=== PATIENT | female | born 1955 | race Caucasian/White ===

== ENCOUNTER 2019-06-26 13:04 | Outpatient (CLI) | payer OTHER, SELFPAY ==
--- NOTE | 2019-06-26 13:13 | MM_ITS ---
WS: [id number] BILATERAL SCREENING DIGITAL MAMMOGRAM WITH CAD HISTORY: SCREENING COMPARISON: 05/26/2018 and 04/04/2017 Bilateral CC and MLO views submitted. Computer aided detection analyzed. Breast composition: There are scattered areas of fibroglandular density. No suspicious masses, microc alcifications or architectural distortion. Benign calcifications within each breast. MM/[place] [id number] IMPRESSION: BI-RADS: 2-Benign FOLLOW UP: 1 Year Follow-up
== END 2019-06-26 13:05 | disposition home or self-care (01) ==
LOC: RADSHAW 13:09
PROVIDERS: Family Provider Family Medicine; PCP Family Medicine
DX: Z12.31 Encounter for screening mammogram for malignant neoplasm of breast (principal)
CPT/HCPCS: 77067

== ENCOUNTER → 2019-07-30 12:35 | Outpatient (BNVA) | payer MEDICARE, SELFPAY | PROVIDERS: Family Provider Family Medicine; PCP Family Medicine; Visit Provider Nurse Practitioner | DX: J02.9 Acute pharyngitis, unspecified (principal); Z20.828 Contact with and (suspected) exposure to other viral communicable diseases | CPT/HCPCS: 87081; 87804; 87880 ==

== ENCOUNTER → 2019-08-17 11:22 | Outpatient (BNVA) | payer MEDICARE, SELFPAY | PROVIDERS: Family Provider Family Medicine; PCP Family Medicine; Visit Provider Family Medicine | DX: E78.2 Mixed hyperlipidemia (principal); Z76.89 Persons encountering health services in other specified circumstances | CPT/HCPCS: 80053; 80061; 83036; 84443; 85025 ==

== ENCOUNTER → 2019-10-03 09:09 | Outpatient (BNVA) | payer MEDICARE, SELFPAY | PROVIDERS: Family Provider Family Medicine; PCP Family Medicine; Referring Provider Family Medicine; Visit Provider Specialist | DX: R41.89 Other symptoms and signs involving cognitive functions and awareness (principal); R26.81 Unsteadiness on feet; Z87.891 Personal history of nicotine dependence | CPT/HCPCS: 82607; 82746; 83921; 85651; 96116; 99205 ==

== ENCOUNTER 2019-10-03 11:59 | Outpatient (CLI) | payer MEDICARE, SELFPAY ==
[2019-10-03 13:14] LABS: Vitamin B12 295 pg/mL (232-1245)
[2019-10-03 13:43] LABS: Erythrocyte Sedimentation Rate 22 mm/hr (0-15)
[2019-10-04 14:46] LABS: THYROID PEROXIDASE ANTIBODIES <1 IU/mL (<9)
[2019-10-04 15:10] LABS: ANA SCREEN, IFA NEGATIVE (NEGATIVE); CENTROMERE B ANTIBODY <1.0 NEG AI (<1.0 NEG); JO-1 ANTIBODY <1.0 NEG AI (<1.0 NEG); RNP ANTIBODY <1.0 NEG AI (<1.0 NEG); SCL-70 ANTIBODY <1.0 NEG AI (<1.0 NEG); SJOGREN'S ANTIBODY (SS-A) <1.0 NEG AI (<1.0 NEG); SM ANTIBODY <1.0 NEG AI (<1.0 NEG)
[2019-10-05 11:05] LABS: COMPLEMENT, TOTAL (CH50) >60 U/mL (31-60)
[2019-10-05 11:32] LABS: COMPLEMENT COMPONENT C3C 158 mg/dL (83-193); COMPLEMENT COMPONENT C4C 23 mg/dL (15-57)
[2019-10-07 01:27] LABS: DNA AB (DS) CRITHIDIA,IFA NEGATIVE (NEGATIVE)
[2019-10-08 15:51] LABS: Methylmalonic Acid 284 nmol/L (87-318)
== END 2019-10-03 12:00 | disposition home or self-care (01) ==
LOC: LAB 12:04
PROVIDERS: Family Provider Family Medicine; PCP Family Medicine; Visit Provider Specialist
DX: R26.81 Unsteadiness on feet (principal)
CPT/HCPCS: 82607; 82746; 83921; 85651

== ENCOUNTER → 2020-03-17 15:27 | Outpatient (BNVA) | payer MEDICARE, SELFPAY | PROVIDERS: Family Provider Family Medicine; PCP Family Medicine; Visit Provider Nurse Practitioner Family | DX: M79.642 Pain in left hand (principal) | CPT/HCPCS: 73130 ==

== ENCOUNTER → 2020-12-26 10:36 | Outpatient (BNVA) | payer MEDICARE, SELFPAY | PROVIDERS: Family Provider Family Medicine; PCP Family Medicine; Visit Provider Nurse Practitioner | DX: I10 Essential (primary) hypertension (principal); M54.9 Dorsalgia, unspecified; M25.579 Pain in unspecified ankle and joints of unspecified foot; M10.9 Gout, unspecified | CPT/HCPCS: 80053; 80061; 81000; 84443; 84550; 85025; 85651 ==

== ENCOUNTER → 2021-01-14 09:40 | Outpatient (BNVA) | payer MEDICARE, SELFPAY | PROVIDERS: Family Provider Family Medicine; PCP Family Medicine; Visit Provider Nurse Practitioner | DX: M25.579 Pain in unspecified ankle and joints of unspecified foot (principal); M54.9 Dorsalgia, unspecified; G89.29 Other chronic pain; M79.89 Other specified soft tissue disorders; M25.473 Effusion, unspecified ankle | CPT/HCPCS: 72072; 72100; 73610; 73630 ==

== ENCOUNTER 2021-09-27 | Outpatient (RCR) | payer MEDICARE, SELFPAY | END 2021-10-27 23:59 | disposition home or self-care (01) | LOC: TPT | PROVIDERS: Family Provider Family Medicine; PCP Nurse Practitioner | DX: M25.552 Pain in left hip (principal); M25.551 Pain in right hip; M54.50 Low back pain, unspecified; M19.90 Unspecified osteoarthritis, unspecified site | CPT/HCPCS: 97032; 97110; 97163 ==

== ENCOUNTER 2021-10-28 06:00 | Outpatient (RCR) | payer MEDICARE, SELFPAY | END 2021-11-26 23:59 | disposition home or self-care (01) | LOC: TPT 06:00 | PROVIDERS: PCP Nurse Practitioner | DX: M54.50 Low back pain, unspecified (principal); M25.552 Pain in left hip; M25.551 Pain in right hip | CPT/HCPCS: 97032; 97110 ==

== ENCOUNTER 2021-11-27 06:00 | Outpatient (RCR) | payer MEDICARE, SELFPAY | END 2021-12-27 23:59 | disposition home or self-care (01) | LOC: TPT 06:00 | PROVIDERS: PCP Nurse Practitioner | DX: M25.552 Pain in left hip (principal); M25.551 Pain in right hip; M54.50 Low back pain, unspecified; M19.90 Unspecified osteoarthritis, unspecified site | CPT/HCPCS: 97110 ==

== ENCOUNTER 2021-12-28 06:00 | Outpatient (RCR) | payer MEDICARE, SELFPAY | END 2021-12-29 16:19 | disposition home or self-care (01) | LOC: TPT 06:00 | PROVIDERS: PCP Nurse Practitioner | DX: M54.50 Low back pain, unspecified (principal); M25.552 Pain in left hip; M25.551 Pain in right hip | CPT/HCPCS: 97110 ==

== ENCOUNTER → 2022-05-17 13:42 | Outpatient (BNVA) | payer MEDICARE, SELFPAY | PROVIDERS: PCP Nurse Practitioner; Visit Provider Nurse Practitioner Family | DX: I10 Essential (primary) hypertension; R19.7 Diarrhea, unspecified; I48.91 Unspecified atrial fibrillation; R11.2 Nausea with vomiting, unspecified | CPT/HCPCS: 80053; 80061; 84443 ==

== ENCOUNTER 2023-05-11 20:06 | Observation (INO) | payer MEDICARE, SELFPAY ==
[2023-05-11] VITALS (17 sets, daily range): BP systolic 125–187; BP diastolic 74–114; PULSE 74–89; RESP 13–24; TEMP 36.7; O2SAT 91–98
--- NOTE | 2023-05-11 20:16 | ECG_ITS ---
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 Measurements Intervals [place] Rate: 89 P: 56 IA: 190 QRS: -49 QRSD: 89 T: 42 QT: 338 QTc: 413 Interpretive Statements SINUS RHYTHM LOW QRS VOLTAGE IN PRECORDIAL LEADS [QRS DEFLECTION < 1.0 mV IN CHEST LEADS] LEFT ANTERIOR FASCICULAR BLOCK [QRS AXIS <= -45, QR IN I, RS IN II] Compared to ECG 01/28/2019 03:48:08 No significant changes Electronically Signed On 05-12-2023 7:16:58 PROFESSIONAL HEALTHCARE REPRESENTATIVE by Micaela Herbert M.D. [email or web address]
--- NOTE | 2023-05-11 20:16 | XRR_ITS ---
PROCEDURE INFORMATION: Exam: XR Chest Exam date and time: 05/11/2023 8:50 PM Age: 67 years old Clinical indication: Shortness of breath; Additional info: SOB TECHNIQUE: Imaging protocol: Radiologic exam of the chest. Views: 1 view. COMPARISON: CT angio chest PE protcl [id number] 01/29/2019 11:31 AM FINDINGS: Lungs: No consolidation. Pleural spaces: No large pleural effusion. No pneumothorax. Heart/Mediastinum: Unremarkable cardiomediastinal silhouette. Bones/joints: No acute abnormality. XR/XR chest 1V portable [id number] IMPRESSION: No acute findings.
--- NOTE | 2023-05-11 20:21 | CTR_ITS ---
PROCEDURE INFORMATION: Exam: CT Head Without Contrast Exam date and time: 05/11/2023 8:27 PM Age: 67 years old Clinical indication: Stroke-like symptoms; Altered mental status/memory loss and drowsines/somnolence; Additional info: Weakness TECHNIQUE: Imaging protocol: Computed tomography of the head without contrast. Radiation optimization: All CT scans at this facility use at least one of these dose optimization techniques: automated exposure control; mA and/or kV adjustment per patient size (includes targeted exams where dose is matched to clinical indication); or iterative reconstruction. Other technique: STROKE PROTOCOL was implemented. REPORTING DATA: Count of CT and Cardiac NM exams in prior 12 months: This patient has received 0 known CTs and 0 known cardiac nuclear medicine studies in the 12 months prior to the current study. COMPARISON: MR head wo con* [id number] 01/30/2019 3:12 PM RADIATION DOSE METRICS: Total DLP (mGy-cm): 1168.2 FINDINGS: Brain: No acute intracranial hemorrhage. No territorial region of reynoso-white dedifferentiation. No extra-axial collection. No mass effect or midline shift. Mild generalized parenchymal volume loss. Prominent perivascular space in the left subinsular region. Cerebral ventricles: No acute hyrocephalus. Paranasal sinuses: Visualized sinuses are well-aearted. No fluid levels. Mastoid air cells: Visualized mastoid air cells are well aerated. Orbital cavities: No acute orbital abnormality. Bones/joints: No acute calvarial fracture. Soft tissues: No acute abnormality. CT/CT head wo con* [id number] IMPRESSION: No acute intracranial hemorrhage or evidence of acute territorial infarct. If there is persistent high clinical suspicion for acute ischemia, recommend MRI, as it is a more sensitive evaluation. ASSESSMENT: ASPECTS ([place] Stroke Program Early CT Score) is 10.
--- NOTE | 2023-05-11 20:22 | W.ED.SOB ---
HPI - SOB/Dyspnea General: Chief Complaint: Shortness of Breath/Dyspnea Stated Complaint: lethargy Time Seen by Provider: 05/11/23 20:12 Source: patient and EMS Mode of arrival: EMS Limitations: no limitations History of Present Illness: HPI Narrative: 67-year-old female was eating with family roughly 1 hour ago per EMS and family patient had became extremely lethargic and had a possible syncopal event states that she had cyanosis of her lips had placed a pulse ox on and stated it was in the 80s he states that she is having slurred speech and was not able to ambulate. Patient was placed on oxygen and route here given Raquel I did take her oxygen off she is 94% on room air currently. She has no slurred speech she states that her legs feel extremely weak she denies headache she denies chest pain denies any fevers. Associated symptoms: Reports syncope; Deny abdominal pain, chest pain, fever(s), nausea or vomiting Review of Systems Const: Denies: fever(s), chills, body aches or change in appetite Eyes: Denies: blurry vision or eye discomfort ENMT: Denies: throat pain or dental pain Card: Reports: syncope; Denies: chest pain Resp: Reports: dyspnea GI: Denies: abdominal pain, nausea, vomiting or diarrhea Musc: Denies: neck pain or back pain Skin/Breast: Denies: rash Neuro: Reports: weakness in extremities and confusion; Denies: headache(s) [facility] PFSH: Medical History Obesity, morbid, BMI 40.0-49.9 Chronic back pain Environmental and seasonal allergies Surgical History History of hysterectomy Family History Other Cancer Dementia Diabetes Hypertension Denies family history of Anesthesia complication Bleeding disorder Stroke Social History Second hand smoke exposure: No Alcohol intake: never Substance/Drug Use: never Adopted: No Caregiver/support person: No Lives independently: Yes Household members: spouse Housing: House Marital status: Number of children: 1 service: No Current occupational status: retired Current occupational exposures/hazards: No Do you think of yourself as: Straight/Heterosexual Current gender identity: Female Physical Exam Const: COMMON NORMALS: patient oriented x3 GENERAL APPEARANCE: ill appearing HENMT: COMMON NORMALS: normocephalic and atraumatic HEAD & SCALP: normocephalic and atraumatic Eye: COMMON NORMALS: Equal, round and reactive pupils present and EOMs intact bilaterally PUPIL: Yes Equal, round and reactive pupils present Neck/C-Spine: COMMON NORMALS: full ROM and supple Chest: COMMONS NORMALS: normal inspection of the chest and normal palpation of entire chest wall Resp: COMMON NORMALS: normal respiratory effort, No retractions, No use of accessory muscles and clear to auscultation bilaterally AUSCULTATION: clear to auscultation bilaterally Cardio: COMMON NORMALS: regular rate, regular rhythm and No murmurs present (Cardio) RATE: regular rate RHYTHM: regular rhythm GI: COMMON NORMALS: Normal to inspection, nondistended, normoactive bowel sounds present, Soft to palpation, non-tender and no masses PALPATION: Yes Soft to palpation Extremity: COMMON NORMALS: normal to inspection and full ROM Neuro: COMMON NORMALS: patient oriented x3 and no focal motor deficits SPEECH: speech normal OTHER: Patient having difficulty walking with bilateral leg weakness Psych: COMMON NORMALS: mental status grossly normal, Normal thought process present and cooperative THOUGHT PROCESS: Normal thought process present Skin: COMMON NORMALS: no rashes or lesions noted and no wounds GENERAL SKIN EXAM: no rashes or lesions noted Course Vital Signs: Vital signs: Vital Signs Temperature 98.1 F 05/11/23 20:07 Pulse Rate 79 05/11/23 21:30 Respiratory Rate 19 H 05/11/23 21:30 Blood Pressure 132/85 05/11/23 21:30 Pulse Oximetry 92 05/11/23 21:30 Oxygen Delivery Me thod Nasal Cannula 05/11/23 20:07 Oxygen Flow Rate 3 05/11/23 20:07 MDM - SOB/Dyspnea Medical Decision Making Patient presents here with possible syncopal event she has had lower leg weakness as well she states she feels much improved her weakness is improved here she has no signs of stroke head CT are normal. I spoke to the hospitalist will admit for observation. Medical Records I reviewed the patient's medical records. Lab Data I reviewed the patient's lab results. 05/11/23 20:45 05/11/23 20:45 Labs/Radiology: Radiology Impressions Chest X-Ray 05/11/23 20:16 IMPRESSION: No acute findings. Head CT 05/11/23 20:21 IMPRESSION: No acute intracranial hemorrhage or evidence of acute territorial infarct. If there is persistent high clinical suspicion for acute ischemia, recommend MRI, as it is a more sensitive evaluation. ASSESSMENT: ASPECTS ([place] Stroke Program Early CT Score) is 10. Head/Neck CTA 05/11/23 20:23 IMPRESSION: No large vessel occlusion or high-grade stenosis. IMPRESSION: 1. Patent cervical carotid and vertebral arteries without significant stenosis. 2. Enlarged main pulmonary artery, can be seen with pulmonary hypertension. REFERENCES: NASCET CRITERIA. The degree of stenosis in the cervical segment of the internal carotid artery is based on NASCET criteria. Normal is no stenosis. Mild is less than 50% stenosis. Moderate is 50-69% stenosis. Severe is 70% to 99% stenosis. Total occlusion is no detectable patent lumen. Laboratory Results WBC 8.80 10^3/uL (3.29-11.43) 05/11/23 20:45 RBC 4.62 10^6/uL (3.85-5.65) 05/11/23 20:45 Hgb 13.30 g/dL (11.27-16.99) 05/11/23 20:45 Hct 42.2 % (36-47) 05/11/23 20:45 MCV 91.3 fl (85-98) 05/11/23 20:45 MCH 28.8 pg (27-33) 05/11/23 20:45 MCHC 31.5 g/dL (30-55) 05/11/23 20:45 RDW 13.2 % (12.1-15.1) 05/11/23 20:45 Plt Count 208 10^3/cmm (157-399) 05/11/23 20:45 MPV 9.9 fL (7.4-10.4) 05/11/23 20:45 Neut % (Auto) 73.1 % 05/11/23 20:45 Lymph % (Auto) 15.2 % 05/11/23 20:45 [place] % (Auto) 9.1 % 05/11/23 20:45 Eos % (Auto) 1.4 % 05/11/23 20:45 Baso % (Auto) 0.9 % 05/11/23 20:45 Neut # (Auto) 6.43 10^3/uL (1.8-7.7) 05/11/23 20:45 Lymph # (Auto) 1.3 10^3/uL (0.8-4.8) 05/11/23 20:45 [place] # (Auto) 0.8 10^3/uL (0.2-0.9) 05/11/23 20:45 Eos # (Auto) 0.1 10^3/uL (0.0-0.8) 05/11/23 20:45 Baso # (Auto) 0.1 10^3/uL (0.0-0.1) 05/11/23 20:45 Nucleated RBC % (auto) 0 % 05/11/23 20:45 Nucleated RBCs # 0.0 /100WBC 05/11/23 20:45 PT 12.80 SECONDS (12.1-14.9) 05/11/23 20:45 INR 0.94 (0.8-1.2) 05/11/23 20:45 Specimen Type Arterial 05/11/23 20:45 Sample Site Brachial, right 05/11/23 20:45 ABG pH 7.35 (7.35-7.45) 05/11/23 20:45 ABG pCO2 56.1 mmHg (35-45) H 05/11/23 20:45 ABG pO2 61.7 mmHg (80.0-100.0) L 05/11/23 20:45 ABG PO2/FiO2 Ratio 0 05/11/23 20:45 ABG HCO3 30.6 mmol/L (22-26) H 05/11/23 20:45 ABG Base Excess 3.5 mmol/L (-2.0-2.0) H 05/11/23 20:45 Jairon Test N/a 05/11/23 20:45 Hematocrit 41.2 % (37-47) 05/11/23 20:45 O2 Delivery Device None 05/11/23 20:45 FiO2 21.0 % 05/11/23 20:45 Hardwood Floor Refinisher ID [email or web address] 12/13/23 20:45 Sodium 135 mmol/L (136-145) L 05/11/23 20:45 Potassium 4.3 mmol/L (3.5-5.1) 05/11/23 20:45 Chloride 98 mmol/L (98-107) 05/11/23 20:45 Carbon Dioxide 30 mmol/L (22-29) H 05/11/23 20:45 Anion Gap 11.3 (5-19) 05/11/23 20:45 BUN 12 mg/dL (8-23) 05/11/23 20:45 Creatinine 0.8 mg/dL (0.5-0.9) 05/11/23 20:45 GFR Calculation 71.3 mL/min (90-130) L 05/11/23 20:45 Glucose 116 mg/dL (65-115) H 05/11/23 20:45 POC Glucose 103 mg/dL (70-110) 05/11/23 20:43 Calculated Osmolality 281 mOsm/kg (285-295) L 05/11/23 20:45 Calcium 9.3 mg/dL (8.5-10.5) 05/11/23 20:45 Total Bilirubin 0.2 mg/dL (0.15-1.2) 05/11/23 20:45 AST 14 U/L (0-32) 05/11/23 20:45 ALT 13 U/L (0-33) 05/11/23 20:45 Alkaline Phosphatase 101 U/L (35-105) 05/11/23 20:45 Troponin T Baseline 16 ng/L (0-10) H 05/11/23 20:45 NT-Pro-B Natriuret Pep 68 pg/mL (0-125) 05/11/23 20:45 Total Protein 6.0 g/dL (6.6-8.7) L 05/11/23 20:45 Albumin 3.9 g/dL (3.5-5.2) 05/11/23 20:45 Globulin 2.1 g/dL (1.3-4.6) 05/11/23 20:45 Urine Color Yellow (Yellow) 05/11/23 21:12 Urine Appearance Clear (CLEAR) 05/11/23 21:12 Urine pH 5 (5-7) 05/11/23 21:12 Ur Specific [place] 1.020 (1.005-1.030) 05/11/23 21:12 Urine Protein Neg (Negative) 05/11/23 21:12 Urine Glucose (UA) Norm (Normal) 05/11/23 21:12 Urine Ketones Negative (Negative) 05/11/23 21:12 Urine Blood Neg (Negative) 05/11/23 21:12 Urine Nitrate Negative (Negative) 05/11/23 21:12 Urine Bilirubin Neg (Negative) 05/11/23 21:12 Urine Urobilinogen Neg mg/dL (Negative) 05/11/23 21:12 Ur Leukocyte Esterase Negative (Negative) 05/11/23 21:12 All radiology interpretation(s) finalized by discharge EKG Data EKG 1: I personally reviewed and interpreted this EKG as follows: EKG Interpretation Date: 05/11/23 EKG interpretation time: 20:12 Interpretation: nsr hr [address] elevation qrs 89 qtc 385 Discharge Plan Discharge Patient Disposition: Placed in Observation Clinical Impression: Weakness Syncope Qualifiers: Syncope type: unspecified Qualified Code(s): R55 - Syncope and collapse Condition: Stable Prescriptions: No Action venlafaxine 75 mg capsule,extended release 24hr 75 mg PO DAILY lisinopril 20 mg tablet 20 mg PO DAILY gabapentin 100 mg capsule 100 mg PO TID hydrochlorothiazide 12.5 mg tablet 12.5 mg PO DAILY cholecalciferol (vitamin D3) 50 mcg (2,000 unit) capsule 50 mcg PO DAILY Eliquis 5 mg tablet 5 mg PO BID Qty: 60 2RF sotalol 80 mg tablet 80 mg PO BID Qty: 60 2RF promethazine-DM 6.25-15 mg/5 mL syrup 5 ml PO Q6H PRN (Reason: cough) Qty: 160 0RF promethazine 25 mg tablet 25 mg PO QID PRN (Reason: nausea and vomiting) Qty: 60 0RF loperamide [Imodium A-D] 2 mg capsule 2 mg PO Q4H PRN (Reason: loose stool) Qty: 20 0RF promethazine-DM 6.25-15 mg/5 mL syrup 5 - 10 ml PO Q6H PRN (Reason: cough) Qty: 200 1RF azithromycin [Zithromax Z-Sandro] 250 mg tablet See Rx Instructions PO .COMPLEX Qty: 6 0RF Rx Instructions: For 250 mg dose pack: take 500 mg today (day 1), then 250 mg for 4 days (days 2-5) PO methylprednisolone [Medrol (Sandro)] 4 mg tablets,dose pack See Rx Instructions PO PER PKG DIR Qty: 21 0RF Rx Instructions: PO PER PKG DIR penicillin V potassium 500 mg tablet 500 mg PO TID 7 Days Qty: 21 0RF Referrals: Kobe Lenz MD [Primary Care Provider] - Coding Level of Care Code ED Visual Inspector for Chg Fwd NIH stroke score NIHSS Level Of Consciousness - 1a: 0 Level Of Consciousness Questions - 1b: Both Correct Level Of Consciousness Commands - 1c: Both Correct Best Gaze - 2: Normal Visual [place] - 3: No Visual Loss Facial Palsy - 4: Normal Motor Arm Right - 5: No Drift Motor Arm Left - 5: No Drift Motor Leg Right - 6: Effort Against [place] Motor Leg Left - 6: Effort Against [place] Limb Ataxia - 7: Absent Sensory - 8: Normal Best Language - 9: No Aphasia Dysarthia - 10: Normal Extinction And Inattention - 11: 0 Score Total Score: 4
--- NOTE | 2023-05-11 20:23 | CTR_ITS ---
PROCEDURE INFORMATION: Exam: CTA Head With Contrast, Arteriography Exam date and time: 05/11/2023 8:29 PM Age: 67 years old Clinical indication: Stroke-like symptoms; Altered mental status/memory loss and drowsines/somnolence; Additional info: CVA TECHNIQUE: Imaging protocol: Computed tomographic angiography of the head with contrast. Exam focused on the arteries. 3D rendering (Not supervised by radiologist): MIP and/or 3D reconstructed images were created by the technologist. Radiation optimization: All CT scans at this facility use at least one of these dose optimization techniques: automated exposure control; mA and/or kV adjustment per patient size (includes targeted exams where dose is matched to clinical indication); or iterative reconstruction. Contrast material: OMNI 350; Contrast volume: 100 ml; Contrast route: INTRAVENOUS (IV); REPORTING DATA: Count of CT and Cardiac NM exams in prior 12 months: This patient has received 0 known CTs and 0 known cardiac nuclear medicine studies in the 12 months prior to the current study. COMPARISON: CT head wo con* [id number] 05/11/2023 8:27 PM RADIATION DOSE METRICS: Total DLP (mGy-cm): 518.32 FINDINGS: ANTERIOR CIRCULATION: Right internal carotid artery: Patent without high-grade stenosis. Right middle cerebral artery: M1 and M2 segments are patent without high-grade stenosis. Right anterior cerebral artery: A1 and A2 segments are patent without high-grade stenosis. Left internal carotid artery: Patent without high-grade stenosis. Left middle cerebral artery: M1 and M2 segments are patent without high-grade stenosis. Left anterior cerebral artery: A1 and A2 segments are patent without high-grade stenosis. POSTERIOR CIRCULATION: Right vertebral artery: V4 segment is patent without high-grade stenosis. Left vertebral artery: V4 segment is patent without high-grade stenosis. Basilar artery: Patent without high-grade stenosis. Right posterior cerebral artery: P1 and P2 segments are patent without high-grade stenosis. Left posterior cerebral artery: P1 and P2 segments are patent without high-grade stenosis. Brain: No territorial region of reynoso-white dedifferentiation. No mass effect or midline shift. Cerebral ventricles: No acute hydrocephalus. Bones/joints: No acute fracture. Soft tissues: Unremarkable. Other findings: No aneurysm. No venous thrombosis. PROCEDURE INFORMATION: Exam: CTA Neck With Contrast Exam date and time: 05/11/2023 8:29 PM Age: 67 years old Clinical indication: Stroke-like symptoms; Altered mental status/memory loss and drowsines/somnolence; Additional info: CVA TECHNIQUE: Imaging protocol: Computed tomographic angiography of the neck with contrast. Exam focused on the cervical segments of the vasculature. 3D rendering (Not supervised by radiologist): MIP and/or 3D reconstructed images were created by the technologist. Radiation optimization: All CT scans at this facility use at least one of these dose optimization techniques: automated exposure control; mA and/or kV adjustment per patient size (includes targeted exams where dose is matched to clinical indication); or iterative reconstruction. Contrast material: OMNI 350; Contrast volume: 100 ml; Contrast route: INTRAVENOUS (IV); REPORTING DATA: Count of CT and Cardiac NM exams in prior 12 months: This patient has received 0 known CTs and 0 known cardiac nuclear medicine studies in the 12 months prior to the current study. COMPARISON: CT angio headneck* [id number] 01/27/2019 11:54 PM RADIATION DOSE METRICS: Total DLP (mGy-cm): 518.32 FINDINGS: Right common carotid artery: Patent. No high grade stenosis. Right internal carotid artery: Patent. Mild carotid bulb plaque with no stenosis by NASCET criteria. Right external carotid artery: Patent. No high grade stenosis at the origin. Left common carotid artery: Patent. No high grade stenosis. Left internal carotid artery: Patent. Mild carotid bulb plaque with no stenosis by NASCET criteria. Left external carotid artery: Patent. No high grade stenosis at the origin. Right vertebral artery: Patent. No high grade stenosis. Left vertebral artery: Patent. No high grade stenosis. Pulmonary arteries: Main pulmonary artery is enlarged measuring up to 3.6 cm. Soft tissues: Unremarkable. Bones/joints: No acute fracture. Lungs: Emphysema. CT/CT angio headneck* [id number] IMPRESSION: No large vessel occlusion or high-grade stenosis. IMPRESSION: 1. Patent cervical carotid and vertebral arteries without significant stenosis. 2. Enlarged main pulmonary artery, can be seen with pulmonary hypertension. REFERENCES: NASCET CRITERIA. The degree of stenosis in the cervical segment of the internal carotid artery is based on NASCET criteria. Normal is no stenosis. Mild is less than 50% stenosis. Moderate is 50-69% stenosis. Severe is 70% to 99% stenosis. Total occlusion is no detectable patent lumen.
[2023-05-11] MEDS: iohexol 350 mg/mL 500 mL Btl (per mL) IV (20:42)
[2023-05-11 20:46] LABS: Glucose Point of Care 103 mg/dL (70-110)
[2023-05-11 20:49] LABS: Basophils # 0.1 10^3/uL (0.0-0.1); Basophils % 0.9 %; Eosinophils # 0.1 10^3/uL (0.0-0.8); Eosinophils % 1.4 %; Hematocrit 42.2 % (36-47); Lymphocytes # 1.3 10^3/uL (0.8-4.8); Lymphocytes % 15.2 %; Mean Corpuscular HGB Conc 31.5 g/dL (30-55); Mean Corpuscular Hemoglobin 28.8 pg (27-33); Mean Corpuscular Volume 91.3 fl (85-98); Mean Platelet Volume 9.9 fL (7.4-10.4); Monocytes # 0.8 10^3/uL (0.2-0.9); Monocytes % 9.1 %; Neutrophils # 6.43 10^3/uL (1.8-7.7); Neutrophils % 73.1 %; Nucleated Red Blood Cells % 0 %; Platelet Count 208 10^3/cmm (157-399); Red Blood Count 4.62 10^6/uL (3.85-5.65); Red Cell Distribution Width 13.2 % (12.1-15.1)
--- NOTE | 2023-05-11 20:49 | PC.NURSE ---
Dr Farah instructed this nurse to hold off on hydralazine due to last BP.
[2023-05-11 20:51] LABS: ABG PCO2 56.1 mmHg (35-45); ABG PH Result 7.35 (7.35-7.45); Arterial Blood Gas Hematocrit 41.2 % (37-47); Base Excess ABG 3.5 mmol/L (-2.0-2.0); Blood Gas Sample Site Brachial, right; Blood Gas Sample Type Arterial; HCO3 ABG 30.6 mmol/L (22-26); PO2 ABG 61.7 mmHg (80.0-100.0); PO2 FiO2 Ratio Arterial Blood 0
[2023-05-11 21:02] LABS: INR 0.94 (0.8-1.2)
--- NOTE | 2023-05-11 21:03 | P.CONIM_ITS ---
Providers/Reason For Consult 2 Consulting Physician/Specialty*: Oskar Thornton MD neurology and epilepsy Reason for Consult*: Acute care code stroke emergency department room #10 Primary Care Provider: Kobe Lenz MD History of Present Illness History of Present Illness Brianna Deleon is a 67 year old female with a history of atrial fibrillation presented to the emergency room secondary to shortness of breath. According to the patient's daughter, the patient was eating chicken and rice and suddenly appeared as though she was having trouble swallowing. The patient was reported to stare and display cyanosis of her lips with decreased home pulse oximetry at 81% with irregular heart rate in the 70s to 80s. The patient was reported to lose consciousness and upon regaining consciousness patient was reported to be mumbling and was confused. EMS was contacted and the patient was brought to [facility] emergency department. In the emergency room, the patient's examination was nonfocal. NIH score equals 0. Noncontrast head CT was obtained and revealed no acute findings. CT angiogram of the head and neck were also performed the results of this study was negative for stenosis or aneurysm. In the emergency department room #10 the patient is alert alert and in no apparent distress. Her speech is clear and her examination is nonfocal. Patient did report history of chronic low back pain and complaining of pain in her lower back during lower extremity muscle testing. The patient's med list consist of Eliquis. The patient reported that she has not been taking the medication. According to the patient's daughter, the patient had a similar syncopal episode preceded by cyanosis of her lips in 2019 or 2020. Drug allergies: Levaquin which resulted in a rash Current home medications: Eliquis 5 mg p.o. twice daily (patient stated that she has not been taking this medication) Vitamin D3 50 mcg p.o. daily Azithromycin 250 mg tab Neurontin 100 mg p.o. 3 times daily Hydrochlorothiazide 12.5 mg p.o. daily Lisinopril 20 mg p.o. daily Loperamide 2 mg p.o. every 4 hours as needed Methylprednisolone 4 mg Dosepak Penicillin V Potassium Phenergan 25 mg p.o. 4 times daily, as needed Sotalol 80 mg p.o. twice daily Effexor extended release 75 mg p.o. daily Past medical history: Atrial fibrillation Pneumonia Chronic low back pain Obesity Hypertension Habits: None Review of Systems 2 General: Reports: 10 or more systems reviewed and unremarkable except in HPI and below Medications/Allergies Home Medications Medication Instructions Recorded Confirmed Last Taken Type apixaban 5 mg tablet (Eliquis) 5 mg PO BID #60 tabs 04/16/22 05/25/22 Unknown Rx cholecalciferol (vitamin D3) 50 50 mcg PO DAILY 04/16/22 05/25/22 Unknown History mcg (2,000 unit) capsule gabapentin 100 mg capsule 100 mg PO TID 04/16/22 05/25/22 Unknown History hydrochlorothiazide 12.5 mg tablet 12.5 mg PO DAILY 04/16/22 05/25/22 Unknown History lisinopril 20 mg tablet 20 mg PO DAILY 04/16/22 05/25/22 Unknown History promethazine-DM 6.25 mg-15 mg/5 mL 5 ml PO Q6H PRN cough #160 mL 04/16/22 05/25/22 Unknown Rx oral syrup sotalol 80 mg tablet 80 mg PO BID #60 tabs 04/16/22 05/25/22 Unknown Rx venlafaxine 75 mg capsule,extended 75 mg PO DAILY 04/16/22 05/25/22 Unknown History release 24 hr loperamide 2 mg capsule (Imodium 2 mg PO Q4H PRN loose stool #20 05/17/22 05/25/22 Unknown Rx A-D) caps promethazine 25 mg tablet 25 mg PO QID PRN nausea and 05/17/22 05/25/22 Unknown Rx vomiting #60 tabs azithromycin 250 mg tablet See Rx Instructions PO .COMPLEX #6 05/25/22 05/25/22 Unknown Rx (Zithromax Z-Sandro) tabs methylprednisolone 4 mg tablets in See Rx Instructions PO PER PKG DIR 05/25/22 05/25/22 Unknown Rx a dose pack (Medrol (Sandro)) #21 ea promethazine-DM 6.25 mg-15 mg/5 mL 5 - 10 ml PO Q6H PRN cough #200 mL 05/25/22 05/25/22 Unknown Rx oral syrup penicillin V potassium 500 mg 500 mg PO TID 7 days #21 tabs 05/28/22 05/28/22 Unknown Rx tablet Allergies Allergy/AdvReac Type Severity Reaction Status Date / Time levofloxacin [From Levaquin] Allergy ALGY-Rash Verified 05/11/23 20:17 PFSH Acute 2 PFSH: Medical History Obesity, morbid, BMI 40.0-49.9 Chronic back pain Environmental and seasonal allergies Surgical History History of hysterectomy Family History Other Cancer Dementia Diabetes Hypertension Denies family history of Anesthesia complication Bleeding disorder Stroke Social History Second hand smoke exposure: No Alcohol intake: never Substance/Drug Use: never Adopted: No Caregiver/support person: No Lives independently: Yes Household members: spouse Housing: House Marital status: Number of children: 1 service: No Current occupational status: retired Current occupational exposures/hazards: No Do you think of yourself as: Straight/Heterosexual Current gender identity: Female Vitals/I&O/Wt Last Vital Signs Temp 98.1 F 05/11/23 20:07 Pulse 89 05/11/23 20:07 Resp 22 H 05/11/23 20:07 BP 187/104 05/11/23 20:07 Pulse Ox 98 05/11/23 20:07 O2 Del Method Nasal Cannula 05/11/23 20:07 O2 Flow Rate 3 05/11/23 20:07 Weight last 48 hrs Weight 245 lb Physical Exam 2 Narrative: NIH score =0 The patient is alert and oriented to person place and situation. Patient was able to tell me her complete name, age and date of . Speech is clear. Head normocephalic. Neck supple. Cranial nerves II through XII grossly intact. Pupils 4 mm round reactive to light and accommodation. Extraocular movements intact. There were no nystagmus. Visual de appear to be full via confrontation. There was no obvious facial weakness. Motor testing was nonfocal. Patient had strong handgrips bilaterally and strong distal lower extremity power. Patient complained of pain in her back during leg raise in each leg bilaterally but she was able to lift her legs off of the bed. Patient reports proximal arm weakness but had strong handgrips and forearm strength bilaterally. Sensory examination was intact to touch. There was no extinction on double sensory stimulation. Deep tendon reflexes 2+ in upper extremities and 1+ at the patellas bilaterally. Plantar responses flexor bilaterally. There was no clonus. Throat clear. Lungs clear. Heart regular rhythm and rate extremities were negative for cyanosis. Data 05/11/23 20:45 05/11/23 20:45 A&P Assessment and plan (1) Syncope: Impression: 1. Syncopal episode preceded by patient appearing to be choking with respiratory difficulty and cyanosis of the lips and decreased O2 saturation 1a. Code stroke initiated. Neurological examination nonfocal. NIH score =[address] revealed no acute findings and CT angiogram of the head and neck negative for stenosis or aneurysm. Therefore the patient was not a candidate for thrombolytics and no thrombolytic was administered. 2. Atrial fibrillation 3. Hypertension 4. Respiratory distress Plan: 1. Recommend resuming Eliquis 2. Recommend cardiac evaluation for patient history of atrial fibrillation 3. Syncope/fall precautions 4. No further recommendations from neurological standpoint Consult Attestations 2 Medical Necessity Statement: Patient was evaluated by neurology for acute care/code stroke emergency department room #10 Coding Level of Care Code 88752 Diagnoses Syncope R55
[2023-05-11 21:12] LABS: Troponin(5th) Baseline 16 ng/L (0-10)
--- NOTE | 2023-05-11 21:12 | PC.NURSE ---
Dr Farah stated to this nurse that it was all right to obtain urine specimen via straight cath.
[2023-05-11 21:14] LABS: Add Urine Microscopic? NO; Charge for UA Resulting for Rev
[2023-05-11 21:19] LABS: Bilirubin Urine Neg (Negative); Blood Urine Neg (Negative); Glucose Urine UA Norm (Normal); Ketones Urine Negative (Negative); Leukocyte Esterase Urine Negative (Negative); Nitrate Urine Negative (Negative); Protein Urine Neg (Negative); Urine Appearance Clear (CLEAR); Urine Color Yellow (Yellow); Urobilinogen Urine Neg (Negative); pH Urine 5 (5-7)
[2023-05-11 21:19] LABS: Alanine Aminotransferase 13 U/L (0-33); Albumin Level 3.9 g/dL (3.5-5.2); Alkaline Phosphatase 101 U/L (35-105); Anion Gap 11.3 (5-19); Aspartate Amino Transferase 14 U/L (0-32); Blood Urea Nitrogen 12 mg/dL (8-23); Calcium 9.3 mg/dL (8.5-10.5); Carbon Dioxide 30 mmol/L (22-29); Chloride 98 mmol/L (98-107); Globulin 2.1 g/dL (1.3-4.6); Glomerular Filtration Rate 71.3 mL/min (90-130); Glucose 116 mg/dL (65-115); NT Pro B Type Natriuretic Pept 68 pg/mL (0-125); Osmolality Calculated 281 mOsm/kg (285-295); Potassium 4.3 mmol/L (3.5-5.1); Sodium 135 mmol/L (136-145); Total Bilirubin 0.2 mg/dL (0.15-1.2)
--- NOTE | 2023-05-11 21:39 | PM.HP ---
Providers/Chief Complaint Primary Care Provider: Kobe Lenz MD Chief Complaint: lethargy History of Present Illness Brianna Deleon is a 67 year old female who presents today after syncopal event while she was eating dinner with her daughter, daughter is at the bedside stating that same event happened in 2019 and then 2001, patient was evaluated by advisor advocate angel co founder who found A-fib and put on Eliquis and sotalol, 2021 patient had coronary angiogram which was unremarkable at [facility]. Today patient was having dinner when she turned blue, her lips were cyanotic, she was stuttering, EMS was called, she was saturating 81%, irregular heartbeat however without RVR he was in 70s, she was put on 3 L of oxygen, code stroke was called, she was evaluated by neurologist, NIH 0 on arrival, she was saturating well on room air, patient has not taken Eliquis or sotalol since June this year, patient stating that she is not able to afford any of her medications she is not taking any medication at this time. Her PCP is in [place] She has applied for special aid but still waiting for the approval I have requested D-dimer which is 0.7 which is unremarkable for her age She is normotensive, NIH 0 at the time of my evaluation as well, she is not in heart failure, BNP of 67, troponin without significant elevation EKG showing sinus rhythm CTA head and neck unremarkable, concern for pulmonary hypertension Will request echo Review of Systems Const: Denies: fever(s) Eyes: Denies: change in vision ENMT: Denies: throat pain Card: Denies: chest pain Resp: Denies: dyspnea : Denies: flank pain Musc: Denies: neck pain Skin/Breast: Denies: rash Neuro: Reports: dizziness, vertigo and Slurred speech present Psych: Denies: anxiety Medications/Allergies Home Medications Medication Instructions Recorded Confirmed Last Taken Type apixaban 5 mg tablet (Eliquis) 5 mg PO BID #60 tabs 04/16/22 05/25/22 Unknown Rx cholecalciferol (vitamin D3) 50 50 mcg PO DAILY 04/16/22 05/25/22 Unknown History mcg (2,000 unit) capsule gabapentin 100 mg capsule 100 mg PO TID 04/16/22 05/25/22 Unknown History hydrochlorothiazide 12.5 mg tablet 12.5 mg PO DAILY 04/16/22 05/25/22 Unknown History lisinopril 20 mg tablet 20 mg PO DAILY 04/16/22 05/25/22 Unknown History promethazine-DM 6.25 mg-15 mg/5 mL 5 ml PO Q6H PRN cough #160 mL 04/16/22 05/25/22 Unknown Rx oral syrup sotalol 80 mg tablet 80 mg PO BID #60 tabs 04/16/22 05/25/22 Unknown Rx venlafaxine 75 mg capsule,extended 75 mg PO DAILY 04/16/22 05/25/22 Unknown History release 24 hr loperamide 2 mg capsule (Imodium 2 mg PO Q4H PRN loose stool #20 05/17/22 05/25/22 Unknown Rx A-D) caps promethazine 25 mg tablet 25 mg PO QID PRN nausea and 05/17/22 05/25/22 Unknown Rx vomiting #60 tabs azithromycin 250 mg tablet See Rx Instructions PO .COMPLEX #6 05/25/22 05/25/22 Unknown Rx (Zithromax Z-Sandro) tabs methylprednisolone 4 mg tablets in See Rx Instructions PO PER PKG DIR 05/25/22 05/25/22 Unknown Rx a dose pack (Medrol (Sandro)) #21 ea promethazine-DM 6.25 mg-15 mg/5 mL 5 - 10 ml PO Q6H PRN cough #200 mL 05/25/22 05/25/22 Unknown Rx oral syrup penicillin V potassium 500 mg 500 mg PO TID 7 days #21 tabs 05/28/22 05/28/22 Unknown Rx tablet Allergies Allergy/AdvReac Type Severity Reaction Status Date / Time levofloxacin [From Levaquin] Allergy ALGY-Rash Verified 05/11/23 20:17 PFSH Acute PFSH: Medical History Pneumonia Cough Acute bronchitis Allergic eczema Obesity, morbid, BMI 40.0-49.9 Chronic back pain Environmental and seasonal allergies Surgical History History of hysterectomy Family History Other Cancer Dementia Diabetes Hypertension Denies family history of Anesthesia complication Bleeding disorder Stroke Social History Second hand smoke exposure: No Alcohol intake: never Substance/Drug Use: never Adopted: No Caregiver/support person: No Lives independently: Yes Household members: spouse Housing: House Marital status: Number of children: 1 service: No Current occupational status: retired Current occupational exposures/hazards: No Do you think of yourself as: Straight/Heterosexual Current gender identity: Female Vitals/I&O/Wt Last Vital Signs Temp 98.1 F 05/11/23 20:07 Pulse 79 05/11/23 21:30 Resp 19 H 05/11/23 21:30 BP 132/85 05/11/23 21:30 Pulse Ox 92 05/11/23 21:30 O2 Del Method Nasal Cannula 05/11/23 20:07 O2 Flow Rate 3 05/11/23 20:07 Weight last 48 hrs Weight 111.13 kg Physical Exam Narrative: NIH 0 No active focal exam S1, S2 sinus rhythm hemodynamic stable GCS 15, obese Abdomen soft lower Extremity no swelling Currently saturating well on room air No acute distress at all No slurring of speech, Good strength of upper and lower extremities Data 05/11/23 20:45 05/11/23 20:45 A&P Assessment and plan (1) Essential (primary) hypertension: (2) Atrial fibrillation: (3) Chronic back pain: (4) Syncope: Qualifiers: Syncope type: unspecified Qualified Code(s): R55 - Syncope and collapse (5) Weakness: (6) TIA (transient ischemic attack): Plan TIA CTA head and neck unremarkable NIH 0 Patient has not taken Eliquis for total of this year She has been evaluated by advisor advocate angel co founder who found A-fib and put her on sotalol and Eliquis She would require financial reporting consultant through case management in the morning Her PCP is in [place] I will continue high-dose statins, Eliquis and Plavix Will request echo, Patient hemodynamically stable, She carries diagnosis essential hypertension Patient has not taken antihypertensive regimen in a year, currently normotensive She takes lisinopril and hydrochlorothiazide I would only continue lisinopril at lower dose 10 mg daily History of A-fib, continue Eliquis Hold off on sotalol I will add low-dose metoprolol Full code Cardiac diet PT evaluation needed No need of OT or speech therapy DVT prophylaxis Eliquis will be sufficient at this time D-dimer: Unremarkable for age No signs of UTI Acute hypoxia: Resolved currently doing well on room air she was put on 3 L by the EMS Chest x-ray unremarkable Will request records from [facility] regarding recent angiogram was unremarkable as per the daughter Attestations Medical Necessity Statement*: Anticipate discharge within 48 hours Diagnoses Essential (primary) hypertension I10 Atrial fibrillation I48.91 Chronic back pain M54.9; G89.29 Syncope R55 Syncope type: unspecified Weakness R53.1 TIA (transient ischemic attack) G45.9
--- NOTE | 2023-05-11 21:41 | USCV_ITS ---
Brianna Deleon Age: 67 Gender: F : 1955 Exam Date: 05/11/2023 22:58 Ordering Phys: Matty Gillette MD Technologist: NITIN [place]am [place] [facility] [place]ication: TIA - slurred speech and ataxia episode. No history of cardiac intervention per patient. BP: 132 / 85 HR: 85 Rhythm: Sinus Technical Quality: Adequate MEASUREMENTS (Male / Female) Normal Values 2D ECHO LV Diastolic Diameter PLAX 4.3 cm 4.2 - 5.9 / 3.9 - 5.3 cm LV Systolic Diameter PLAX 2.8 cm IVS Diastolic Thickness 1.9 cm 0.6 - 1.0 / 0.6 - 0.9 cm IVS Systolic Thickness 2.1 cm LVPW Diastolic Thickness 1.5 cm 0.6 - 1.0 / 0.6 - 0.9 cm LVPW Systolic Thickness 1.8 cm LVOT Diameter 2.0 cm LV Ejection Fraction 2D Teich 64.9 % LV Ejection Fraction MOD 2C 56.9 % LV Ejection Fraction 2C AL 59.0 % LA Diameter 3.7 cm LA Width 3.0 cm LA Height 4.5 cm RA Width 3.6 cm RA Height 4.3 cm Aorta at Sinotubular Diameter 2.6 cm IVC Diameter 1.7 cm M-MODE Aortic Annulus Diameter 3.5 cm LA Ao Ratio MM 1.1 MV E Point Septal Separation 0.2 cm DOPPLER AV Peak Velocity 152.0 cm/s LVOT Peak Velocity 100.0 cm/s AV Area Cont Eq vti 2.4 cm squared AV Area Cont Eq pk 2.0 cm squared MV Area PHT 3.9 cm squared Mitral E to A Ratio 0.6 MV E' Velocity 35.0 cm/s Mitral E to MV E' Ratio 6.8 Mitral E to LV E' Lateral Ratio 5.8 Mitral E to LV E' Septal Ratio 8.5 TR Peak Velocity 239.0 cm/s TR Peak Gradient 22.8 mmHg TV Peak E Velocity 40.0 cm/s Right Atrial Pressure 5.0 mmHg Pulmonary Artery Systolic Pressu 27.8 mmHg PV Peak Velocity 106.0 cm/s RV Acceleration Time 0.0 s RV Ejection Time 0.3 s RV AcT/ET 0.1 FINDINGS Left Ventricle Normal left ventricular size, systolic function and mildly increased wall thickness, with no diagnostic regional wall motion abnormalities. Left ventricular ejection fraction is estimated at 60 %. Grade I diastolic dysfunction (abnormal relaxation filling pattern), normal to mildly elevated filling pressures. Right Ventricle Normal right ventricular size and systolic function. Right Atrium Normal right atrial size. Left Atrium Normal left atrial size. Mitral Valve Mildly thickened mitral valve. Aortic Valve Structurally normal trileaflet aortic valve. No aortic valve stenosis. No aortic valve regurgitation. Tricuspid Valve Structurally normal tricuspid valve. Trace tricuspid valve regurgitation. Pulmonic Valve Structurally normal pulmonic valve. No pulmonary valve stenosis. Trace pulmonary valve regurgitation. Pericardium No pericardial effusion. Aorta Normal size aortic root and proximal ascending aorta. IVC Normal IVC dimension with >50% respiratory change of the inferior vena cava. CONCLUSIONS 1. Normal left ventricular size, systolic function and mildly increased wall thickness, with no diagnostic regional wall motion abnormalities. Left ventricular ejection fraction is estimated at 60 %. Grade I diastolic dysfunction (abnormal relaxation filling pattern), normal to mildly elevated filling pressures. 2. No significant valvular abnormalities. 3. No significant change when compared to study dated 02/20/2019. Micaela Herbert MD (Electronically Signed) Final Date: 12 May 2023 12:47 S
[2023-05-11 21:54] LABS: D Dimer 0.74 ug/mLFEU (0-0.59)
--- NOTE | 2023-05-11 22:07 | PC.NURSE ---
Report called to Krystal Markham LPN on MS. All questions and concerns addressed at time of report.
[2023-05-11 22:13] LABS: Estmated Average Glucose 117; Hemoglobin A1C 5.7 % (4.0-6.0)
[2023-05-11 23:53] LABS: Thyroid Stimulating Hormone 1.16 uIU/mL (0.27-4.20); Vitamin B12 589 pg/mL (232-1245)
[2023-05-12] VITALS (7 sets, daily range): BP systolic 113–132; BP diastolic 72–85; PULSE 72–108; RESP 14–18; TEMP 36.8–37; O2SAT 90–95
[2023-05-12 00:10] LABS: Troponin 5 2HR 14.46 ng/L (0-10)
[2023-05-12 00:11] LABS: Troponin 5 2HR Delta -1.54 ABS# (0-10)
[2023-05-12 02:51] LABS: Basophils # 0.1 10^3/uL (0.0-0.1); Basophils % 0.9 %; Eosinophils # 0.1 10^3/uL (0.0-0.8); Eosinophils % 1.8 %; Hematocrit 41.2 % (36-47); Lymphocytes # 1.9 10^3/uL (0.8-4.8); Lymphocytes % 24.5 %; Mean Corpuscular HGB Conc 31.3 g/dL (30-55); Mean Corpuscular Hemoglobin 28.5 pg (27-33); Mean Corpuscular Volume 91.2 fl (85-98); Monocytes # 0.8 10^3/uL (0.2-0.9); Monocytes % 9.5 %; Neutrophils # 4.97 10^3/uL (1.8-7.7); Neutrophils % 62.9 %; Nucleated Red Blood Cells % 0 %; Platelet Count 202 10^3/cmm (157-399); Red Blood Count 4.52 10^6/uL (3.85-5.65); Red Cell Distribution Width 13.2 % (12.1-15.1); White Blood Count 7.89 10^3/uL (3.29-11.43)
[2023-05-12 03:11] LABS: Troponin 5 6HR 12.88 ng/L (0-10); Troponin 5 6HR Delta -3.12 ng/L (0-12)
[2023-05-12 03:14] LABS: Blood Urea Nitrogen 11 mg/dL (8-23); Calcium 9.4 mg/dL (8.5-10.5); Carbon Dioxide 27 mmol/L (22-29); Chloride 102 mmol/L (98-107); Glomerular Filtration Rate 83.2 mL/min (90-130); Glucose 109 mg/dL (65-115); Magnesium 1.9 mg/dL (1.7-2.3); Osmolality Calculated 286 mOsm/kg (285-295); Phosphorus 3.3 mg/dL (2.5-4.5); Sodium 138 mmol/L (136-145)
[2023-05-12 03:16] LABS: Anion Gap 13.2 (5-19); Potassium 4.2 mmol/L (3.5-5.1)
[2023-05-12] MEDS: clopidogrel 75 mg Tablet PO (08:29)
[2023-05-12] MEDS: metoprolol tartrate 25 mg Tablet 12.5 MG PO (08:29)
[2023-05-12] MEDS: apixaban 5 mg Tablet PO (08:30)
[2023-05-12] MEDS: lisinopril 20 mg Tablet 10 MG PO (08:30)
[2023-05-12] MEDS: atorvastatin 40 mg Tablet 80 MG PO (08:30)
[2023-05-12] MEDS: acetaminophen 500 mg Tablet PO (08:36)
--- NOTE | 2023-05-12 10:11 | MR_ITS ---
WS: [id number] MRI HEAD WITHOUT CONTRAST TECHNIQUE: Sagittal T1, T2 axial, T2 axial FLAIR, axial and coronal T1 images, axial susceptibility w eighted imaging, axial diffusion weighted images, and coronal T2 images were obtained. CLINICAL INFORMATION: Possible post circulation stroke COMPARISON: CT 05/11/2023 and MRI 2019 FINDINGS: No evidence of restricted diffusion to suggest acute ischemia. Ventricular system and basal cisterns are patent. Mild small vessel changes. Mild parenchymal volume loss. This is only slightly progressed since 2019. Normal posterior fossa. Normal vascular flow voids at the skull base. No extra-axial fluid collection s. No evidence of mass or mass effect. Mild mucosal thickening in the paranasal sinuses. Mild mucosal thickening RIGHT mastoid air cells. Normal posterior nasopharynx. No hemosiderin on the susceptibly weighted images. Normal optic chiasm and pituitary infundibulum. Te mporal lobes and hippocampal formations are normal in appearance. IMPRESSION: 1. No evidence of restricted diffusion to suggest acute ischemia. 2. Mild small vessel changes with mild parenchymal volume loss. 3. No hemosiderin on susceptibly weighted images. 4. No other suspicious findings.
--- NOTE | 2023-05-12 10:31 | PC.CHAP ---
Pastoral Care Encounter/Spiritual Assessment Type of Contact [] Declined senior systems developer visit [] Patient/Family/Request visit [] Outpatient visit [x] Follow-up visit [] Physician referral [] Code/Alert [] Routine visit [] Staff referral [] Actively dying [] Patient sleeping [] Family support [] [] Out of room [] Palliative care [] [] Receiving care in room [] Pre-surgical visit [] Trauma [] Long length of stay [] ICU visit [] Other: Relational/Emotional Strength [] Patient feels connected with others/family/visitors/staff [] Distress [] Loneliness/isolation [] Abandonment Spirituality of Patient [] Person of Gauri [] Attends Gnosticism of their Gauri [] Believes in Prayer [] Reads Bible or Mormonism materials [] There are Spiritual issues to be addressed Curriculum Consultant Interventions [] Prayer [] Active listening [] Non-anxious presence [] Spiritual/emotional support [] Crisis/trauma care [] Spiritual counseling [] Bereavement support [] Provided bereavement packet [] Provided Bible/devotional materials [] Provided toy/stuffed animal, coloring book to patient or family member [] Provided Communion [] Anointing/[place] [] Salvation [] Completed spiritual assessment [] Other: Impact on Illness or Injury [] Angry [] Fearful [] Anxious [] Often cries [] Exhaustion [] Unable to work [] Unable to attend religious [] Unable to walk/stand [] Unable to read [] Unable to drive [] Unable to eat/drink [] Unable to sleep [] Unable to be with family [] Patient intubated [] Other: Summary Follow-up visit Time spent with patient 5 mins
--- NOTE | 2023-05-12 14:05 | PM.DCS ---
Discharge Providers Date of Admission: 05/11/23 21:49 Date of Discharge: May 12, 2023 Attending Provider at Admission: Matty Gillette MD Attending Provider at Discharge: Hans Roberts MD Consults: Neurology: Dr. Thornton Primary Care Provider: Kobe Lenz MD Diagnoses at Discharge Discharge Diagnosis (1) Essential (primary) hypertension: Status: Chronic (2) Atrial fibrillation: Status: Acute (3) Chronic back pain: Status: Chronic (4) Syncope: Status: Acute Qualifiers: Syncope type: unspecified Qualified Code(s): R55 - Syncope and collapse (5) Weakness: Status: Acute (6) TIA (transient ischemic attack): Status: Acute Reason for Visit Reason for Visit: lethargy Brief History: History as per HPI: Brianna Deleon is a 67 year old female who presents today after syncopal event while she was eating dinner with her daughter, daughter is at the bedside stating that same event happened in 2018 and then 2001, patient was evaluated by sales representative printing supplies who found A-fib and put on Eliquis and sotalol, 2021 patient had coronary angiogram which was unremarkable at [facility]. Today patient was having dinner when she turned blue, her lips were cyanotic, she was stuttering, EMS was called, she was saturating 81%, irregular heartbeat however without RVR he was in 70s, she was put on 3 L of oxygen, code stroke was called, she was evaluated by neurologist, NIH 0 on arrival, she was saturating well on room air, patient has not taken Eliquis or sotalol since June this year, patient stating that she is not able to afford any of her medications she is not taking any medication at this time. Her PCP is in [place] She has applied for special aid but still waiting for the approval. Hospital Course Hospital Course Patient was admitted to the hospital for further evaluation and management of syncope. She did not have any further episodes of syncope during hospitalization. She was seen by PT and OT and was cleared for discharge. MRI head was done which ruled out stroke. Patient stated she is supposed to be on medication for A-fib including sotalol and Eliquis which she has not been taking because of financial constraints. Case management was consulted and patient was given resources with 340 b. Orthostatics are negative. Echocardiogram was done which showed a normal EF 60%, grade 1 diastolic dysfunction. She has been discharged hemodynamically stable condition with advised to follow-up with a primary care provider within next 1 week. Medications have been provided to Meds to bed. Physical Exam Narrative: NIH 0 No active focal exam S1, S2 sinus rhythm hemodynamic stable GCS 15, obese Abdomen soft lower Extremity no swelling Currently saturating well on room air No acute distress at all No slurring of speech, Good strength of upper and lower extremities Discharge Data Studies Completed and Pending Completed Studies During Hospitalization Category Date Time Status CT head wo con* [id number] Stat Cat Scan 05/11/23 20:21 Completed CTA head neck [CT angio headneck* [id number]] Stat Cat Scan 05/11/23 20:23 Completed XR chest 1V portable [id number] Stat Exams 05/11/23 20:16 Completed MR head wo con* [id number] Routine MRI 05/12/23 10:11 Completed CV. echo complete* [id number] Routine Ultrasound 05/11/23 21:41 Completed Radiology Impressions Chest X-Ray 05/11/23 20:16 IMPRESSION: No acute findings. Head CT 05/11/23 20:21 IMPRESSION: No acute intracranial hemorrhage or evidence of acute territorial infarct. If there is persistent high clinical suspicion for acute ischemia, recommend MRI, as it is a more sensitive evaluation. ASSESSMENT: ASPECTS ([place] Stroke Program Early CT Score) is 10. Head/Neck CTA 05/11/23 20:23 IMPRESSION: No large vessel occlusion or high-grade stenosis. IMPRESSION: 1. Patent cervical carotid and vertebral arteries without significant stenosis. 2. Enlarged main pulmonary artery, can be seen with pulmonary hypertension. REFERENCES: NASCET CRITERIA. The degree of stenosis in the cervical segment of the internal carotid artery is based on NASCET criteria. Normal is no stenosis. Mild is less than 50% stenosis. Moderate is 50-69% stenosis. Severe is 70% to 99% stenosis. Total occlusion is no detectable patent lumen. Echocardiogram: CONCLUSIONS 1. Normal left ventricular size, systolic function and mildly increased wall thickness, with no diagnostic regional wall motion abnormalities. Left ventricular ejection fraction is estimated at 60 %. Grade I diastolic dysfunction (abnormal relaxation filling pattern), normal to mildly elevated filling pressures. 2. No significant valvular abnormalities. 3. No significant change when compared to study dated 02/20/2019. Micaela Herbert MD (Electronically Signed) Final Date: 12 May 2023 MRI head: IMPRESSION: 1. No evidence of restricted diffusion to suggest acute ischemia. 2. Mild small vessel changes with mild parenchymal volume loss. 3. No hemosiderin on susceptibly weighted images. 4. No other suspicious findings. Dictated By: Héctor Vazquez MD Laboratory Results WBC 7.89 10^3/uL (3.29-11.43) 05/12/23 02:46 RBC 4.52 10^6/uL (3.85-5.65) 05/12/23 02:46 Hgb 12.90 g/dL (11.27-16.99) 05/12/23 02:46 Hct 41.2 % (36-47) 05/12/23 02:46 MCV 91.2 fl (85-98) 05/12/23 02:46 MCH 28.5 pg (27-33) 05/12/23 02:46 MCHC 31.3 g/dL (30-55) 05/12/23 02:46 RDW 13.2 % (12.1-15.1) 05/12/23 02:46 Plt Count 202 10^3/cmm (157-399) 05/12/23 02:46 MPV 10.0 fL (7.4-10.4) 05/12/23 02:46 Neut % (Auto) 62.9 % 05/12/23 02:46 Lymph % (Auto) 24.5 % 05/12/23 02:46 Stephens % (Auto) 9.5 % 05/12/23 02:46 Eos % (Auto) 1.8 % 05/12/23 02:46 Baso % (Auto) 0.9 % 05/12/23 02:46 Neut # (Auto) 4.97 10^3/uL (1.8-7.7) 05/12/23 02:46 Lymph # (Auto) 1.9 10^3/uL (0.8-4.8) 05/12/23 02:46 Stephens # (Auto) 0.8 10^3/uL (0.2-0.9) 05/12/23 02:46 Eos # (Auto) 0.1 10^3/uL (0.0-0.8) 05/12/23 02:46 Baso # (Auto) 0.1 10^3/uL (0.0-0.1) 05/12/23 02:46 Nucleated RBC % (auto) 0 % 05/12/23 02:46 Nucleated RBCs # 0.0 /100WBC 05/12/23 02:46 PT 12.80 SECONDS (12.1-14.9) 05/11/23 20:45 INR 0.94 (0.8-1.2) 05/11/23 20:45 D-Dimer 0.74 ug/mLFEU (0-0.59) H 05/11/23 20:45 Specimen Type Arterial 05/11/23 20:45 Sample Site Brachial, right 05/11/23 20:45 ABG pH 7.35 (7.35-7.45) 05/11/23 20:45 ABG pCO2 56.1 mmHg (35-45) H 05/11/23 20:45 ABG pO2 61.7 mmHg (80.0-100.0) L 05/11/23 20:45 ABG PO2/FiO2 Ratio 0 05/11/23 20:45 ABG HCO3 30.6 mmol/L (22-26) H 05/11/23 20:45 ABG Base Excess 3.5 mmol/L (-2.0-2.0) H 05/11/23 20:45 Jairon Test N/a 05/11/23 20:45 Hematocrit 41.2 % (37-47) 05/11/23 20:45 O2 Delivery Device None 05/11/23 20:45 FiO2 21.0 % 05/11/23 20:45 Chiropractic Teacher ID [email or web address] 05/11/23 20:45 Sodium 138 mmol/L (136-145) 05/12/23 02:46 Potassium 4.2 mmol/L (3.5-5.1) 05/12/23 02:46 Chloride 102 mmol/L (98-107) 05/12/23 02:46 Carbon Dioxide 27 mmol/L (22-29) 05/12/23 02:46 Anion Gap 13.2 (5-19) 05/12/23 02:46 BUN 11 mg/dL (8-23) 05/12/23 02:46 Creatinine 0.7 mg/dL (0.5-0.9) 05/12/23 02:46 GFR Calculation 83.2 mL/min (90-130) L 05/12/23 02:46 Glucose 109 mg/dL (65-115) 05/12/23 02:46 POC Glucose 103 mg/dL (70-110) 05/11/23 20:43 Estimat Average Glucose 117 05/11/23 20:45 Hemoglobin A1c 5.7 % (4.0-6.0) 05/11/23 20:45 Calculated Osmolality 286 mOsm/kg (285-295) 05/12/23 02:46 Calcium 9.4 mg/dL (8.5-10.5) 05/12/23 02:46 Phosphorus 3.3 mg/dL (2.5-4.5) 05/12/23 02:46 Magnesium 1.9 mg/dL (1.7-2.3) 05/12/23 02:46 Total Bilirubin 0.2 mg/dL (0.15-1.2) 05/11/23 20:45 AST 14 U/L (0-32) 05/11/23 20:45 ALT 13 U/L (0-33) 05/11/23 20:45 Alkaline Phosphatase 101 U/L (35-105) 05/11/23 20:45 Troponin T Baseline 16 ng/L (0-10) H 05/11/23 20:45 Troponin T 120 Minute 14.46 ng/L (0-10) H 05/11/23 23:39 Delta Troponin T -1.54 ABS# (0-10) L 05/11/23 23:39 Troponin T Hi Sens 6Hr 12.88 ng/L (0-10) H 05/12/23 02:46 Troponin T Hi Sens 6Hr Delta -3.12 ng/L (0-12) L 05/12/23 02:46 NT-Pro-B Natriuret Pep 68 pg/mL (0-125) 05/11/23 20:45 Total Protein 6.0 g/dL (6.6-8.7) L 05/11/23 20:45 Albumin 3.9 g/dL (3.5-5.2) 05/11/23 20:45 Globulin 2.1 g/dL (1.3-4.6) 05/11/23 20:45 Vitamin B12 589 pg/mL (232-1245) 05/11/23 20:45 TSH 1.16 uIU/mL (0.27-4.20) 05/11/23 20:45 Urine Color Yellow (Yellow) 05/11/23 21:12 Urine Appearance Clear (CLEAR) 05/11/23 21:12 Urine pH 5 (5-7) 05/11/23 21:12 Ur Specific [place] 1.020 (1.005-1.030) 05/11/23 21:12 Urine Protein Neg (Negative) 05/11/23 21:12 Urine Glucose (UA) Norm (Normal) 05/11/23 21:12 Urine Ketones Negative (Negative) 05/11/23 21:12 Urine Blood Neg (Negative) 05/11/23 21:12 Urine Nitrate Negative (Negative) 05/11/23 21:12 Urine Bilirubin Neg (Negative) 05/11/23 21:12 Urine Urobilinogen Neg mg/dL (Negative) 05/11/23 21:12 Ur Leukocyte Esterase Negative (Negative) 05/11/23 21:12 Vitals Last Vital Signs Temp 98.6 F 05/12/23 09:00 Pulse 72 05/12/23 09:00 Resp 14 05/12/23 09:00 BP 129/72 05/12/23 09:00 Pulse Ox 94 05/12/23 09:00 O2 Del Method Nasal Cannula 05/12/23 09:00 O2 Flow Rate 2 05/12/23 08:00 Discharge Plan Discharge Patient Disposition: Home Condition: Stable Prescriptions: New atorvastatin 40 mg Tablet 40 mg PO DAILY Qty: 60 0RF lisinopril 20 mg Tablet 10 mg PO DAILY 30 Days Qty: 30 0RF Eliquis 5 mg Tablet 5 mg PO BID Qty: 60 0RF metoprolol tartrate 25 mg tablet 25 mg PO BID Qty: 60 0RF aspirin [Adult Aspirin Regimen] 81 mg tablet,delayed release (DR/EC) 81 mg PO DAILY Qty: 30 0RF Continued Vitamin D3 25 mcg (1,000 unit) Tablet 25 mcg PO DAILY Discontinued aspirin 325 mg Capsule 325 mg PO Q6H PRN (Reason: Pain) Discharge Orders: Discharge Order (Routine); Ordered 05/12/23 Ordered By: Hans Roberts Referrals: Kobe Lenz MD [Primary Care Provider] - Discharge Diet: Cardiac Discharge Activity: Resume usual activity and Increase activity as tolerated Patient Instructions: Opioid Safety Activity Restrictions/Additional Instructions: Please continue taking your medications as prescribed. Please follow-up with a primary care provider within next 1 week. Continue with lifestyle modifications including regular exercise for at least 30 to 40 minutes 4 times a week. Discharge Attestations Time Spent in Discharge Care*: greater than 30 min Specific Discharge Activities: educating patient, discussing with pcp/other providers, discussing with binder caser/social workers/dc planners, documenting/other paperwork and evaluating patient/reviewing data Status at Discharge: Cognitive status at discharge: cognitively intact, Behavioral status at discharge: cooperative, Functional status at discharge: uses cane/walker, Overall status at discharge: patient is back to baseline Quality Metrics Clinical Quality Measures [ No reported AMI, CVA or VTE this stay] Coding Level of Care Code 74369 Total time (in minutes) for Discharge: 50 Diagnoses Essential (primary) hypertension I10 Atrial fibrillation I48.91 Chronic back pain M54.9; G89.29 Syncope R55 Syncope type: unspecified Weakness R53.1 TIA (transient ischemic attack) G45.9
== END 2023-05-12 15:34 | disposition home or self-care (01) ==
LOC: ER 21:43 → MEDSURG 21:49
PROVIDERS: Admitting Provider Internal Medicine; Emergency Provider Emergency Medicine; PCP Family Medicine; Visit Provider Student in an Organized Health Care Education/Training Program
DX: R55 Syncope and collapse (principal); I10 Essential (primary) hypertension; I48.91 Unspecified atrial fibrillation; G89.29 Other chronic pain; M54.9 Dorsalgia, unspecified; R53.1 Weakness; G45.9 Transient cerebral ischemic attack, unspecified; Z66 Do not resuscitate; Z79.01 Long term (current) use of anticoagulants; E66.01 Morbid (severe) obesity due to excess calories; Z68.41 Body mass index [BMI] 40.0-44.9, adult; R09.02 Hypoxemia; R79.89 Other specified abnormal findings of blood chemistry
CPT/HCPCS: 36415; 36416; 36600; 70450; 70496; 70498; 70551; 71045; 80048; 80053; 81003; 82607; 82803; 82962; 83036; 83735; 83880; 84100; 84443; 84484; 85025; 85378; 85610; 93005; 93306; 94760; 97110; 97161; 99285; G0378; Q9967

== ENCOUNTER → 2023-06-17 11:32 | Outpatient (BNVA) | payer MEDICARE, SELFPAY | PROVIDERS: PCP Family Medicine; Visit Provider Nurse Practitioner Family | DX: G45.9 Transient cerebral ischemic attack, unspecified (principal); E55.9 Vitamin D deficiency, unspecified; I10 Essential (primary) hypertension | CPT/HCPCS: 80053; 80061; 82306 ==

== ENCOUNTER 2023-09-28 13:27 | Outpatient (CLI) | payer MEDICARE, SELFPAY ==
--- NOTE | 2023-09-28 13:38 | MM_ITS ---
WS: [id number] BILATERAL 3D TOMOSYNTHESIS DIGITAL SCREENING MAMMOGRAPHY WITH CAD CLINICAL INFORMATION: SCREENING HISTORY: Screening mammogram. No current complaints. COMPARISON: 2020 TECHNIQUE: Bilateral CC and MLO views. FINDINGS: Scattered fibroglandular densities bilaterally. No suspicious focal mass, asymmetry, calcifications, or architectural distortion. No evidence of malignancy. Incidental punctate and lucent centered calci fications. Vascular calcification. MM/[place] [id number] IMPRESSION: BI-RADS: 2-Benign FOLLOW UP: 1 Year Follow-up Recommend return to annual screening mammography.
== END 2023-09-28 13:28 | disposition home or self-care (01) ==
LOC: RAD 13:28
PROVIDERS: PCP Nurse Practitioner Family; Visit Provider Nurse Practitioner Family
DX: Z12.31 Encounter for screening mammogram for malignant neoplasm of breast (principal); R92.323 Mammographic fibroglandular density, bilateral breasts
CPT/HCPCS: 77063; 77067

== ENCOUNTER → 2023-09-30 13:34 | Outpatient (BNVA) | payer MEDICARE, SELFPAY | PROVIDERS: PCP Nurse Practitioner Family; Visit Provider Specialist | DX: R55 Syncope and collapse (principal); R41.3 Other amnesia; R56.9 Unspecified convulsions | CPT/HCPCS: 95819 ==

== ENCOUNTER → 2023-10-03 08:47 | Outpatient (BNVA) | payer MEDICARE, SELFPAY | PROVIDERS: PCP Nurse Practitioner Family; Referring Provider Nurse Practitioner Family; Visit Provider Surgery | DX: R19.5 Other fecal abnormalities (principal); K21.9 Gastro-esophageal reflux disease without esophagitis | CPT/HCPCS: 99204 ==

== ENCOUNTER 2023-11-09 10:44 | Day surgery (SDC) | payer MEDICARE, SELFPAY ==
[2023-11-09 11:04] VITALS: BP 114/89; PULSE 91; RESP 16; TEMP 36.1; O2SAT 93; BMI 41.5
[2023-11-09] MEDS: sodium chloride 0.9% 1,000 ML 30 ML IV (11:10)
--- NOTE | 2023-11-09 11:38 | ANES.PREANE2 ---
Pre-Anesthetic Assessment Height/Weight: Height 1.65 m Weight 113.398 kg Temp Pulse Resp BP Pulse Ox O2 Del Method 97 F L 91 16 114/89 93 Room Air 11/09/23 11:04 11/09/23 11:04 11/09/23 11:04 11/09/23 11:04 11/09/23 11:04 11/09/23 11:04 Preop Diagnosis: GERD, Positive colonrectal cancer screening. Operation Date: 11/09/23 12:00 Proposed Procedures p EGD 32756, 27589, G0105, R19.5, K21.9(Not Applicable) - Naveed Marin DO s Colonoscopy(Not Applicable) - Naveed Marin DO Familial anesthetic complications: none Last intake: Intake Last Liquid Date 11/08/23 Last Liquid Time 21:00 Last Solid Date 11/07/23 Last Solid Time 21:00 Social No alcohol and No tobacco Exam alert, oriented x 3, clear to auscultation bilaterally and regular rate & rhythm Airway Submandibular: within normal limits Cervical ROM: within normal limits Mallampati: Class III Dentition: false (upper and lower dentures) Pulmonary None reported CV/HEM Atrial Fibrillation and Hypertension 3-4 syncopal episodes with complete amnesia in the last 2 years. preventive medicine physician applied by Dr. Arshad turned in on Tuesday. 05/2023 Left Ventricle Normal left ventricular size, systolic function and mildly increased wall thickness, with no diagnostic regional wall motion abnormalities. Left ventricular ejection fraction is estimated at 60 %. Grade I diastolic dysfunction (abnormal relaxation filling pattern), normal to mildly elevated filling pressures. None reported Hepatic None reported GI Gastroesophageal Reflux Disease Metabolic Hyperlipidemia and Morbid Obesity [facility] Osteoarthritis/DJD Neuropsych Depression, Syncope and Transient Ischemic Attack (2023) Anesthetic Plan ASA status: 3 Anesthesia: MAC Medications/Allergies Home Medications Medication Instructions Recorded Confirmed Last Taken Type apixaban 5 mg tablet (Eliquis) 5 mg PO BID 90 days #180 tabs 06/17/23 11/08/23 11/04/23 Rx metoprolol tartrate 25 mg tablet 25 mg PO BID 90 days #180 tabs 06/17/23 11/08/23 11/05/23 Rx aspirin 81 mg tablet,delayed 81 mg PO QAM 08/02/23 11/08/23 11/05/23 History release (Adult Aspirin Regimen) atorvastatin 40 mg tablet 40 mg PO QAM 08/02/23 11/08/23 11/05/23 History cholecalciferol (vitamin D3) 25 25 mcg PO QAM 08/02/23 11/08/23 11/05/23 History mcg (1,000 unit) tablet (Vitamin D3) lisinopril 20 mg tablet 20 mg PO QAM 08/02/23 11/08/23 11/05/23 History pantoprazole 40 mg tablet,delayed 40 mg PO BID 6 weeks #84 tabs 10/03/23 11/08/23 11/05/23 Rx release (Protonix) Allergies Allergy/AdvReac Type Severity Reaction Status Date / Time levofloxacin [From Levaquin] Allergy ALGY-Rash Verified 11/08/23 09:33 Current Medications Generic Name Dose Route Start Last Admin Trade Name Freq PRN Reason Stop Dose Admin Sodium Chloride 1,000 mls @ 30 mls/hr 11/09/23 11:00 11/09/23 11:10 Sodium Chloride 0.9% IV 11/10/23 10:59 30 mls/hr .Q24H SURAJ Administration PFSH Anesthesia Medical History Pneumonia Cough Acute bronchitis Allergic eczema Obesity, morbid, BMI 40.0-49.9 Chronic back pain Environmental and seasonal allergies Surgical History History of hysterectomy Family History Other Cancer Dementia Diabetes Hypertension Denies family history of Anesthesia complication Bleeding disorder Stroke Social History Second hand smoke exposure: No Alcohol intake: never Substance/Drug Use: never Adopted: No Caregiver/support person: No Lives independently: Yes Household members: spouse Housing: House Marital status: Number of children: 1 service: No Current occupational status: retired Current occupational exposures/hazards: No Do you think of yourself as: Straight/Heterosexual Current gender identity: Female Data Anesthesia Cardiac Studies: Echocardiogram 05/11/23 Cardiac Event Monitor 10/13/23
--- NOTE | 2023-11-09 12:36 | PM.HP ---
Providers/Chief Complaint Primary Care Provider: Sharri Baxter Chief Complaint: R19.5, K21.9 History of Present Illness Brianna Deleon is a 68 year old female Review of Systems General: Reports: 10 or more systems reviewed and unremarkable except in HPI and below Medications/Allergies Home Medications Medication Instructions Recorded Confirmed Last Taken Type apixaban 5 mg tablet (Eliquis) 5 mg PO BID 90 days #180 tabs 06/17/23 11/08/23 11/04/23 Rx metoprolol tartrate 25 mg tablet 25 mg PO BID 90 days #180 tabs 06/17/23 11/08/23 11/05/23 Rx aspirin 81 mg tablet,delayed 81 mg PO QAM 08/02/23 11/08/23 11/05/23 History release (Adult Aspirin Regimen) atorvastatin 40 mg tablet 40 mg PO QAM 08/02/23 11/08/23 11/05/23 History cholecalciferol (vitamin D3) 25 25 mcg PO QAM 08/02/23 11/08/23 11/05/23 History mcg (1,000 unit) tablet (Vitamin D3) lisinopril 20 mg tablet 20 mg PO QAM 08/02/23 11/08/23 11/05/23 History pantoprazole 40 mg tablet,delayed 40 mg PO BID 6 weeks #84 tabs 10/03/23 11/08/23 11/05/23 Rx release (Protonix) Allergies Allergy/AdvReac Type Severity Reaction Status Date / Time levofloxacin [From Levaquin] Allergy ALGY-Rash Verified 11/08/23 09:33 PFSH Acute PFSH: Medical History Pneumonia Cough Acute bronchitis Allergic eczema Obesity, morbid, BMI 40.0-49.9 Chronic back pain Environmental and seasonal allergies Surgical History History of hysterectomy Family History Other Cancer Dementia Diabetes Hypertension Denies family history of Anesthesia complication Bleeding disorder Stroke Social History Second hand smoke exposure: No Alcohol intake: never Substance/Drug Use: never Adopted: No Caregiver/support person: No Lives independently: Yes Household members: spouse Housing: House Marital status: Number of children: 1 service: No Current occupational status: retired Current occupational exposures/hazards: No Do you think of yourself as: Straight/Heterosexual Current gender identity: Female Vitals/I&O/Wt Last Vital Signs Temp 97 F L 11/09/23 11:04 Pulse 91 11/09/23 11:04 Resp 16 11/09/23 11:04 BP 114/89 11/09/23 11:04 Pulse Ox 93 11/09/23 11:04 O2 Del Method Room Air 11/09/23 11:04 Weight last 48 hrs Weight 250 lb A&P Assessment and plan (1) Positive colorectal cancer screening using Cologuard test: (2) GERD (gastroesophageal reflux disease): Plan EGD and colonoscopy Attestations Medical Necessity Statement*: Home Coding Level of Care Code Acute Code for Chg Fwd Diagnoses Positive colorectal cancer screening using Cologuard test R19.5 GERD (gastroesophageal reflux disease) K21.9
[2023-11-09 13:10] VITALS: BP 138/95; PULSE 97; RESP 18; TEMP 36.2; O2SAT 97
[2023-11-09 13:30] VITALS: BP 142/89; O2SAT 96
--- NOTE | 2023-11-09 15:42 | ANE.PACU2 ---
Inpatient post-anesthesia follow up: Airway intact: Yes Vital signs: Temperature 97.2 F Pulse Rate 97 Respiratory Rate 18 Blood Pressure 142/89 Pulse Oximetry 96 Oxygen Delivery Me thod Room Air Oxygen Flow Rate Fraction of Inspir ed Oxygen Hydration adequate: Yes Nausea and vomiting: No Pain level: 2 Mental status: Baseline
== END 2023-11-09 13:41 | disposition home or self-care (01) ==
PROVIDERS: PCP Nurse Practitioner Family; Visit Provider Surgery
PROC: 0DJ08ZZ Inspection of Upper Intestinal Tract, Via Natural or Artificial Opening Endoscopic (ICD-10-PCS; CPT 43235; principal; 2023-11-09 12:00)
PROC: 0DJD8ZZ Inspection of Lower Intestinal Tract, Via Natural or Artificial Opening Endoscopic (ICD-10-PCS; CPT 45378; 2023-11-09 12:00)
DX: Z12.11 Encounter for screening for malignant neoplasm of colon (principal); K21.00 Gastro-esophageal reflux disease with esophagitis, without bleeding; D12.5 Benign neoplasm of sigmoid colon; Z79.82 Long term (current) use of aspirin; E66.01 Morbid (severe) obesity due to excess calories; Z68.41 Body mass index [BMI] 40.0-44.9, adult; I48.91 Unspecified atrial fibrillation; I10 Essential (primary) hypertension; E78.5 Hyperlipidemia, unspecified
CPT/HCPCS: 43239; 45385; 88305; J2704; J3010; J7030

== ENCOUNTER → 2023-11-21 15:40 | Outpatient (BNVA) | payer MEDICARE, SELFPAY | PROVIDERS: PCP Nurse Practitioner Family; Visit Provider Surgery | DX: K31.819 Angiodysplasia of stomach and duodenum without bleeding (principal); K21.00 Gastro-esophageal reflux disease with esophagitis, without bleeding; K63.5 Polyp of colon | CPT/HCPCS: 99214 ==

== ENCOUNTER → 2023-12-19 10:38 | Outpatient (BNVA) | payer MEDICARE, SELFPAY | PROVIDERS: PCP Nurse Practitioner Family; Visit Provider Internal Medicine Cardiovascular Disease | DX: R07.9 Chest pain, unspecified (principal) | CPT/HCPCS: 93005; 99205 ==

== ENCOUNTER 2023-12-27 07:08 | Outpatient (CLI) | payer MEDICARE, SELFPAY ==
[2023-12-27 07:45] VITALS: BP 149/75; PULSE 75; RESP 18; TEMP 36.7; O2SAT 95; BMI 41.5
[2023-12-27] MEDS: cephALEXin 500 mg Capsule 2000 MG PO (07:45)
[2023-12-27 07:48] LABS: Basophils # 0.1 10^3/uL (0.0-0.1); Basophils % 1.3 %; Eosinophils # 0.2 10^3/uL (0.0-0.8); Eosinophils % 2.3 %; Hematocrit 44.3 % (36-47); Lymphocytes # 1.5 10^3/uL (0.8-4.8); Lymphocytes % 19.3 %; Mean Corpuscular HGB Conc 31.4 g/dL (30-55); Mean Corpuscular Hemoglobin 28.3 pg (27-33); Mean Platelet Volume 10.1 fL (7.4-10.4); Monocytes # 0.9 10^3/uL (0.2-0.9); Monocytes % 11.1 %; Neutrophils # 5.06 10^3/uL (1.8-7.7); Neutrophils % 65.6 %; Nucleated Red Blood Cells % 0 %; Platelet Count 232 10^3/cmm (157-399); Red Blood Count 4.92 10^6/uL (3.85-5.65); Red Cell Distribution Width 12.8 % (12.1-15.1); White Blood Count 7.72 10^3/uL (3.29-11.43)
--- NOTE | 2023-12-27 08:12 | W.PM.OPSUD ---
Surgery/Procedure H&P Update DATE OF PROCEDURE: December 27, 2023 DATE H&P PERFORMED: 12/19/23 H&P UPDATE INFORMATION: I have reviewed H&P completed within last 30 days, I have examined patient prior to procedure and No changes to prior documentation PREOP DIAGNOSIS: Recurrent syncope PRIMARY INDICATION FOR PROCEDURE: History of atrial fibrillation, status post ablation, presenting with recurrent episodes of syncope PLANNED PROCEDURE: Operation Date: 12/27/23 08:30 Proposed Procedures p Loop Recorder Insertion(Not Applicable) - Kirk Arshad MD
[2023-12-27] MEDS: lidocaine-epi 1% 20 mL INJ INJECTION (08:26)
[2023-12-27 09:55] VITALS: BP 155/83; PULSE 75; RESP 16; TEMP 36.7; O2SAT 97
--- NOTE | 2023-12-27 10:07 | PC.NURSE ---
Dressing to left chest remains clean, dry, and intact. Pt denies pain. Discharge instructions reviewed with patient and spouse, demonstration provided on how to use carelink monitor. Verbalized understanding. Pt left with discharge instructions and carelink monitor.
--- NOTE | 2023-12-27 20:07 | P.OP_ITS ---
Operative Report Date of procedure: December 27, 2023 Surgeon: Kirk Arshad MD Procedure: Date of Procedure: Name of the procedure: IMPLANTABLE MARKETING PROGRAMS MANAGER INSERTION LOCATION: Cardiac Catheterization Laboratory REFERRING PROVIDER: Sharri Baxter PREOPERATIVE DIAGNOSIS: Recurrent syncope. POSTOPERATIVE DIAGNOSIS: Same. ESTIMATED BLOOD LOSS: None COMPLICATIONS: None. BRIEF HISTORY: Patient presented with recurrent episodes of syncope. She had an event monitor which didn't reveal any significant arrhythmias to explain the symptoms. For further evaluation, an implantable quality assurance monitor body was recommended PROCEDURE: The procedure was explained to the patient in detail with the risks and benefits. The risk of bleeding, hematoma, vascular injury, infection and other concomitant complications were explained in detail. The patient understood this well and consented to proceed. The patient was brought to the Cardiac Ammonia Box Tender. The left side of the chest was cleaned and draped in a sterile fashion. 1% Xylocaine was used as local anesthetic agent. An incision was made in the left fourth intercostal space. Making use of the application device, the implantable quality assurance monitor body was inserted, subcutaneously. 5 minutes of manual pressure was applied, at the puncture site. The patient tolerated the procedure very well and there were no complications. No bleeding or hematoma. Steri-Strips were applied over the insertion site followed by a sterile dressing. Patient was sent back to the medical floor in stable condition IMPLANTED DEVICE Reveal LINQ22 Model number: [id number] Serial number: [id number] Make: [employer] Parameters: Standard settings were applied( (tachycardia rate of 162 beats per minute , bradycardia rate of 30 beats per minute and a pause of 3 seconds ; symptom recording -2 episodes of 15 minutes. Atrial fibrillation detection was turned on- recording threshold of ->10 minutes. Sensitivity was kept at 0.035 mV) The R wave sensing was 0.09 mV
== END 2023-12-27 10:10 | disposition home or self-care (01) ==
PROVIDERS: PCP Nurse Practitioner Family; Visit Provider Internal Medicine Cardiovascular Disease
PROC: (CPT 33285; principal; 2023-12-27 08:30)
DX: I48.91 Unspecified atrial fibrillation (principal); R55 Syncope and collapse; E11.9 Type 2 diabetes mellitus without complications; I10 Essential (primary) hypertension; Z82.49 Family history of ischemic heart disease and other diseases of the circulatory system; Z87.891 Personal history of nicotine dependence; Z79.82 Long term (current) use of aspirin; Z98.61 Coronary angioplasty status; Z79.01 Long term (current) use of anticoagulants; E78.2 Mixed hyperlipidemia; G40.909 Epilepsy, unspecified, not intractable, without status epilepticus
CPT/HCPCS: 33285; 36415; 85025; C1764; C1769

== ENCOUNTER → 2024-01-12 12:56 | Outpatient (BNVA) | payer MEDICARE, SELFPAY | PROVIDERS: PCP Nurse Practitioner Family; Visit Provider Nurse Practitioner Family | DX: R00.1 Bradycardia, unspecified (principal); Z95.818 Presence of other cardiac implants and grafts; Z87.891 Personal history of nicotine dependence | CPT/HCPCS: 99213 ==

== ENCOUNTER → 2024-01-25 10:36 | Outpatient (BNVA) | payer MEDICARE, SELFPAY | PROVIDERS: PCP Nurse Practitioner Family; Visit Provider Internal Medicine Cardiovascular Disease | DX: Z45.09 Encounter for adjustment and management of other cardiac device (principal) | CPT/HCPCS: 93298 ==

== ENCOUNTER → 2024-02-16 13:08 | Outpatient (BNVA) | payer MEDICARE, SELFPAY | PROVIDERS: PCP Nurse Practitioner Family; Visit Provider Family Medicine | DX: H66.92 Otitis media, unspecified, left ear (principal) | CPT/HCPCS: 87071; 87880 ==

== ENCOUNTER 2024-03-05 09:05 | Outpatient (CLI) | payer MEDICARE, SELFPAY ==
[2024-03-05 09:38] VITALS: BMI 41.5
--- NOTE | 2024-03-05 09:41 | NMCV_ITS ---
NM jose perf SPECT r/s* [id number] Brianna Deleon Age: 68 Gender: F : 1955 Exam Date: 03/05/2024 10:12 Ordering Phys: Kirk Arshad MD ([email or web address]) Technologist: JENNIFER Delgadillo Exam Location: [facility] Indications: cp STRESS TEST Please see separate stress test [facility] for full findings IMAGE PROTOCOL Rest/Stress 1 Lexiscan Day Radiopharmaceutical Dose (mCi) Administration Site Administered by Rest: Tc-99m 10.7 IV Chhaya Andres PIPE THREADER Sestamibi Stress:Tc-99m 32.5 IV Chhaya Irwingle, PIPE THREADER Sestamibi Rest: 05-Mar-2024 60 Discovery 630 Stress: 05-Mar-2024 30 Discovery 630 0.4mg Lexiscan. Images obtained in supine and prone position. SPECT RESULTS Technical Quality: Good Raw Data Analysis: Breast attenuation Image Corrections: No attenuation or motion correction applied Summed Stress Score: 9 Summed Rest Score: 19 Summed Difference Score: 0 PERFUSION FINDINGS Moderate area of minimal to moderately decreased tracer uptake involving the mid inferolateral, and all the apical segments with no significant reversibility. FUNCTIONAL RESULTS (calculated via Gated SPECT) Stress Image LV EF (%): 79 Stress EDV (mL):90 TID: 1.07 Stress ESV (mL):19 FUNCTIONAL FINDINGS: Segmental wall motion analysis revealing no gross wall motion abnormalities IMPRESSIONS . Myocardial perfusion imaging revealing a moderate area of persistent decreased tracer uptake involving the inferolateral and all the apical segments suggesting myocardial scarring versus attrition artifact 2. Normal LV ejection fraction of 79% 3. LV wall motion analysis revealing no gross wall motion abnormalities. 4. Normal LV volume Low probability for coronary ischemia, based on the above findings No similar previous studies are available for comparison Dr Kirk Arshad MD [facility] (Electronically Signed) Final Date: 05 March 2024 22:42 S
--- NOTE | 2024-03-05 09:41 | ECG_ITS ---
[facility] Test Date: 2024-03-05 Pat Name: Brianna Deleon Department: Room: Gender: Female Service Observer: : 1955 Requested By: Kirk Arshad Order Number: [id number] Mary MD: Kirk Arshad M.D. Interpretive Statements PROCEDURE: At the baseline, the EKG revealed normal sinus rhythm with a poor R wave progression. Some nonspecific T wave changes. The baseline heart was 72 bpm with a blood pressue of 152/92 mm of Hg Lexiscan was infused over a period of 20 seconds. A total of 0.4 milligrams of Lexiscan was infused. The stress phase was continued for a total of 5 minutes. Heart rate at the end of the stress phase was 97 bpm with a blood pressure 160/87 mm of Hg. The EKG at the peak infusion revealed no significant changes. Sestamibi was injected 20 seconds after the Lexiscan infusion. Heart rate at the end of the recovery phase was 92 bpm with a blood pressure of 159/86 mm of Hg. CONCLUSION: 1. No significant EKG changes with the LexiScan infusion 2. No LexiScan induced chest pain or cardiac arrhythmia 3. Normal blood pressure and heart rate response 4. Sestamibi/sestamibi perfusion scan pending; see separate report. Lung unchanged pre/post procedure; Intraprocedure shortess of breath; Symptoms resoled by discharge Electronically Signed On 03-11-2024 19:10:03 CDT by Kirk Arshad M.D. [email or web address]
[2024-03-05] MEDS: regadenoson 0.4 Mg/5 ml Syringe IVP (11:06)
[2024-03-05 11:11] VITALS: BP 159/86; PULSE 94
== END 2024-03-05 09:06 | disposition home or self-care (01) ==
PROVIDERS: PCP Nurse Practitioner Family; Visit Provider Internal Medicine Cardiovascular Disease
DX: Z98.61 Coronary angioplasty status (principal)
CPT/HCPCS: 36415; 78452; 93017; 96374; A9500; J2785

== ENCOUNTER → 2024-03-21 09:46 | Outpatient (BNVA) | payer MEDICARE, SELFPAY | PROVIDERS: PCP Nurse Practitioner Family; Visit Provider Internal Medicine Cardiovascular Disease | DX: Z45.09 Encounter for adjustment and management of other cardiac device (principal) | CPT/HCPCS: 93298 ==

== ENCOUNTER → 2024-03-22 09:51 | Outpatient (BNVA) | payer MEDICARE, SELFPAY | PROVIDERS: PCP Nurse Practitioner Family; Visit Provider Internal Medicine Cardiovascular Disease | DX: I10 Essential (primary) hypertension (principal); I48.91 Unspecified atrial fibrillation; E78.2 Mixed hyperlipidemia; E66.01 Morbid (severe) obesity due to excess calories; Z68.42 Body mass index [BMI] 45.0-49.9, adult; Z95.818 Presence of other cardiac implants and grafts | CPT/HCPCS: 99214 ==

== ENCOUNTER → 2024-06-18 13:04 | Outpatient (BNVA) | payer MEDICARE, SELFPAY | PROVIDERS: Visit Provider Nurse Practitioner Family | DX: M16.12 Unilateral primary osteoarthritis, left hip (principal) | CPT/HCPCS: 73502 ==

== ENCOUNTER → 2024-06-20 10:34 | Outpatient (BNVA) | payer MEDICARE, SELFPAY | PROVIDERS: Visit Provider Internal Medicine Cardiovascular Disease | DX: Z45.09 Encounter for adjustment and management of other cardiac device (principal) | CPT/HCPCS: 93298 ==

== ENCOUNTER 2024-07-13 09:11 | Outpatient (CLI) | payer MEDICARE, SELFPAY ==
--- NOTE | 2024-07-13 09:30 | MR_ITS ---
WS: [id number] MRI LEFT HIP WITHOUT CONTRAST. COMPARISON: 04/16/2019, radiograph 06/18/2024 Multiplanar, multisequence imaging is performed without contrast. Mild narrowing of the LEFT hip joint. Mild irregularity of the cartilage along the acetabulum and femoral head. No significant narrowing is along the anterior superior joint space. There is adjacent edema in the acetabulum. No marrow edema or fracture within the femoral head. No CAM deformity. A small amount of fluid in the joint space. No muscle or soft tissue atrophy or edema. Visualized SI joints and sacrum are normal. No free fluid in the pelvis. Urinary bladder is minimally distended. MR/MR hip LT wo con* [id number] IMPRESSION: 1. No acute fracture. 2. Mild narrowing of the LEFT hip joint with a more focal narrowing along the anterior superior hip joint with acetabular marrow edema. 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 3. Mild loss of cartilage involving the femoral head and acetabulum.
== END 2024-07-13 09:12 | disposition home or self-care (01) ==
LOC: RAD 09:12
PROVIDERS: PCP Nurse Practitioner Family; Visit Provider Nurse Practitioner Family
DX: M25.552 Pain in left hip (principal); M25.652 Stiffness of left hip, not elsewhere classified; M16.12 Unilateral primary osteoarthritis, left hip; R93.89 Abnormal findings on diagnostic imaging of other specified body structures
CPT/HCPCS: 73721

== ENCOUNTER → 2024-08-22 10:00 | Outpatient (BNVA) | payer MEDICARE, SELFPAY | PROVIDERS: PCP Nurse Practitioner Family; Visit Provider Internal Medicine Cardiovascular Disease | DX: Z45.09 Encounter for adjustment and management of other cardiac device (principal); M16.12 Unilateral primary osteoarthritis, left hip | CPT/HCPCS: 93298; 99204 ==

== ENCOUNTER → 2024-10-03 11:44 | Outpatient (BNVA) | payer MEDICARE, SELFPAY | PROVIDERS: PCP Nurse Practitioner Family; Visit Provider Internal Medicine Cardiovascular Disease | DX: Z45.09 Encounter for adjustment and management of other cardiac device (principal) | CPT/HCPCS: 93298 ==

== ENCOUNTER → 2024-11-14 10:23 | Outpatient (BNVA) | payer MEDICARE, SELFPAY | PROVIDERS: PCP Nurse Practitioner Family; Visit Provider Internal Medicine Cardiovascular Disease | DX: Z45.09 Encounter for adjustment and management of other cardiac device (principal); I48.91 Unspecified atrial fibrillation; I10 Essential (primary) hypertension; E78.2 Mixed hyperlipidemia; E66.9 Obesity, unspecified; Z68.41 Body mass index [BMI] 40.0-44.9, adult; Z95.818 Presence of other cardiac implants and grafts; Z87.891 Personal history of nicotine dependence; M79.89 Other specified soft tissue disorders | CPT/HCPCS: 93298; 99214 ==

== ENCOUNTER 2024-12-04 09:06 | Outpatient (CLI) | payer MEDICARE, SELFPAY ==
--- NOTE | 2024-12-04 09:30 | USR_ITS ---
PROCEDURE INFORMATION: Exam: US Duplex Right Lower Extremity Veins, Limited Exam date and time: 12/04/2024 9:39 AM Age: 69 years old Clinical indication: Swelling (edema) of limb; Lower extremity, right; Additional info: Leg swelling, right TECHNIQUE: Imaging protocol: Real-time duplex ultrasound of the right extremity with 2-D reynoso scale, color Doppler flow and spectral waveform analysis including responses to compression and other maneuvers (when performed) with image documentation. Limited exam was focused on the right lower extremity veins. COMPARISON: No relevant prior studies available. FINDINGS: Right deep veins: Unremarkable. The common femoral, femoral, proximal profunda femoral and popliteal veins are patent without thrombus. Normal Doppler waveforms. Normal compressibility and/or augmentation response. Reflux time in the right common femoral vein is 0.9 seconds, right greater saphenous vein distal to the SFJ 0.5 seconds. Superficial veins: Greater saphenous vein at the saphenofemoral junction is patent without thrombus. Soft tissues: Unremarkable. US/[place] [id number] IMPRESSION: No evidence of deep vein thrombosis.
== END 2024-12-04 09:07 | disposition home or self-care (01) ==
PROVIDERS: PCP Nurse Practitioner Family; Visit Provider Internal Medicine Cardiovascular Disease
DX: M79.89 Other specified soft tissue disorders (principal)
CPT/HCPCS: 93971

== ENCOUNTER → 2024-12-13 14:14 | Outpatient (BNVA) | payer MEDICARE, SELFPAY | PROVIDERS: PCP Nurse Practitioner Family; Visit Provider Family Medicine | DX: E78.2 Mixed hyperlipidemia (principal); R55 Syncope and collapse; I48.91 Unspecified atrial fibrillation; G45.9 Transient cerebral ischemic attack, unspecified; R73.03 Prediabetes; R39.15 Urgency of urination | CPT/HCPCS: 80053; 80061; 81000; 83036; 83540; 84439; 84443; 85025; 87086 ==

== ENCOUNTER → 2024-12-19 12:31 | Outpatient (BNVA) | payer MEDICARE, SELFPAY | PROVIDERS: PCP Family Medicine; Visit Provider Internal Medicine Cardiovascular Disease | DX: Z45.09 Encounter for adjustment and management of other cardiac device (principal) | CPT/HCPCS: 93298 ==

== ENCOUNTER → 2025-02-13 10:01 | Outpatient (BNVA) | payer MEDICARE, SELFPAY | PROVIDERS: PCP Family Medicine; Visit Provider Internal Medicine Cardiovascular Disease | DX: Z45.09 Encounter for adjustment and management of other cardiac device (principal) | CPT/HCPCS: 93298 ==

== ENCOUNTER 2025-03-07 12:28 | Outpatient (CLI) | payer MEDICARE, SELFPAY ==
--- NOTE | 2025-03-07 12:40 | MM_ITS ---
WS: [id number] BILATERAL SCREENING DIGITAL TOMOSYNTHESIS MAMMOGRAM WITH CAD HISTORY: screening COMPARISON: 09/28/2023, 06/26/2019 Bilateral CC and MLO views with tomosynthesis and synthetic mammography submitted. Computer aided detection analyzed. Breast composition: There are scattered areas of fibroglandular density. No suspicious masses, microcalcifications or architectural distortion. Benign scattered calcifications. Cardiac loop recorder is noted projecting over the posterior medial LEFT breast. MM/MM scr tomosynthesis [id number] IMPRESSION: BI-RADS: 2 - Benign. FOLLOW UP: 1 Year Follow-up
--- NOTE | 2025-03-07 13:00 | XR_ITS ---
WS: [id number] DEXA (DUAL ENERGY X-RAY ABSORPTIOMETRY) Bone mineral density was performed using a [email or web address] machine. HISTORY: postmenopausal COMPARISON: None available. Lumbar spine BMD (L1-L4): 1.238 g/cm2 T score: 0.5 Z score: 1.0 Total hip BMD: Left: 0.900 g/cm2. T score: -0.9 Z score: -0.2 Right: 0.921 g/cm2. T score: -0.7 Z score: 0.0 10 year probability of a major osteoporotic fracture is 9%. XR/XR DEXA axial skeleton* [id number] IMPRESSION: NORMAL BONE MINERAL DENSITY based upon the WHO classification for females.
== END 2025-03-07 12:29 | disposition home or self-care (01) ==
LOC: RAD 12:31
PROVIDERS: PCP Family Medicine; Visit Provider Family Medicine
DX: Z12.31 Encounter for screening mammogram for malignant neoplasm of breast (principal); Z13.820 Encounter for screening for osteoporosis; Z78.0 Asymptomatic menopausal state; R92.323 Mammographic fibroglandular density, bilateral breasts; R92.1 Mammographic calcification found on diagnostic imaging of breast; Z95.818 Presence of other cardiac implants and grafts
CPT/HCPCS: 77063; 77067; 77080

== ENCOUNTER → 2025-03-13 15:56 | Outpatient (BNVA) | payer MEDICARE, SELFPAY | PROVIDERS: PCP Family Medicine; Visit Provider Internal Medicine Cardiovascular Disease | DX: I48.91 Unspecified atrial fibrillation (principal); E78.2 Mixed hyperlipidemia; Z87.891 Personal history of nicotine dependence | CPT/HCPCS: 99214 ==

== ENCOUNTER → 2025-03-20 16:17 | Outpatient (BNVA) | payer MEDICARE, SELFPAY | PROVIDERS: PCP Family Medicine; Visit Provider Internal Medicine Cardiovascular Disease | DX: Z45.09 Encounter for adjustment and management of other cardiac device (principal) | CPT/HCPCS: 93298 ==

== ENCOUNTER → 2025-05-15 10:42 | Outpatient (BNVA) | payer MEDICARE, SELFPAY | PROVIDERS: PCP Family Medicine; Visit Provider Internal Medicine Cardiovascular Disease | DX: Z45.09 Encounter for adjustment and management of other cardiac device (principal) | CPT/HCPCS: 93298 ==